=== PATIENT | male | born 1955 | race Caucasian/White ===

== ENCOUNTER 2017-07-13 16:20 | Inpatient (IN) | payer OTHER ==
--- NOTE | 2017-07-13 16:32 | PDOC ---
History of Present Illness - General Chief Complaint: Pain, Acute Stated Complaint: RIGHT LOWER ABD PAIN Time Seen by Provider: 07/13/17 16:31 - History of Present Illness Initial Comments: 07/13/17 16:41 Chief complaint: Abdominal pain History of present illness: Right lower quadrant pain since this morning. No nausea or vomiting, had a small breakfast, bowel of soup for lunch, but admits anorexia. Normal bowel movement this morning. Review of systems: No fever/chills, recent URI symptoms, sore throat, cough, chest pain, shortness of breath, vomiting, diarrhea, nausea, hematemesis, melena , bloody stool, visual or focal neurologic symptoms, unsteadiness of gait. In addition, no dysuria frequency urgency hesitancy or hematuria. Remainder systems reviewed and found to be negative Past medical history: High blood pressure on medication, "kidney problem" many years ago, treated with medication, no surgery, no recurrence. The exact nature of the problem is uncertain. No known coronary artery disease, diabetes or other metabolic diseases. No surgery. 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 PERRLA, ENT clear Neck supple without bruit mass or nodes Chest clear. No wheezes rales or rhonchi CV S1 and S2 normal without murmur rub or gallop pulses full and symmetric no JVD or edema no bruits Abdomen mildly distended. Bowel sounds present and normal in character. Tenderness guarding and rebound are present in the right lower quadrant. : No hernias. Testes without mass or tenderness. Neurological intact Extremities no CCE Skin clear, no rash, adequate turgor and wet mucous membranes Impression: Right lower quadrant pain since this morning with peritoneal signs, possible appendicitis, acute diverticulitis, or partial obstruction. Plan: Labs and CT. Further evaluation and surgical consultation if indicated. 07/13/17 18:06 Past History - Past Medical History Allergies/Adverse Reactions: Allergies Allergy/AdvReac Type Severity Reaction Status Date / Time No Known Allergies Allergy Verified 07/13/17 16:21 Home Medications: Ambulatory Orders Atenolol [Tenormin -] 50 mg PO DAILY 07/13/17 Budesonide/Formeterol Fumarate [SYMBICORT 80/4.5mcg -] 1 inh PO BID 07/13/17 Irbesartan 0 mg PO DAILY 07/13/17 COPD: No (?) HTN: Yes - Suicide/Smoking/Psychosocial Hx Smoking History: Current every day smoker Number of Cigarettes Smoked Daily: 10 Information on smoking cessation initiated: Yes 'Breaking Loose' booklet given: 07/13/17 Hx Alcohol Use: No Drug/Substance Use Hx: No Substance Use Type: None *Physical Exam - Vital Signs Last Vital Signs Temp Pulse Resp BP Pulse Ox 100.8 F H 94 H 18 146/76 97 07/13/17 16:21 07/13/17 16:21 07/13/17 16:21 07/13/17 16:21 07/13/17 16:21 ED Treatment Course - LABORATORY CBC & Chemistry Diagram: 07/15/17 07:20 07/15/17 07:20 Medical Decision Making - Medical Decision Making 07/13/17 18:06 WBC 19.7. Remainder of labs without significant abnormalities including BUN 23 and creatinine 1.0. Results of CT pending. Patient continues to require analgesics. However, hemodynamically stable. Signed out to Dr. Diaz at 7 PM pending results of CT scan and further surgical evaluation. *DC/Admit/Observation/Transfer Diagnosis at time of Disposition: Diverticulitis of colon with perforation - Discharge Dispostion Condition at time of disposition: Stable - Referrals - Patient Instructions - Post Discharge Activity
[2017-07-13] MEDS ORDERED: SODIUM CHLORIDE 1,000 ML IV STA (16:40)
[2017-07-13] MEDS ORDERED: morphine CARPU-JECT 4 MG/1 ML DISP.SYRIN IVPUSH ONE ×2 (17:06→18:29)
[2017-07-13] MEDS ORDERED: ONDANSETRON 4 MG/2 ML VIAL IVPB ONE (17:06)
[2017-07-13] MEDS ORDERED: ONDANSETRON 4 MG/2 ML VIAL ONE (17:09)
[2017-07-13] MEDS ORDERED: morphine SULFATE 4 MG/ML VIAL ONE ×2 (17:09→18:30)
[2017-07-13 17:10] LABS: INR 1.24 (0.82-1.09); PROTHROMBIN TIME (PATIENT) 13.8 SEC (10.2-13.0)
[2017-07-13 17:11] LABS: HEMOGLOBIN 15.9 GM/dl (11.7-16.9); MCH 33.9 pg (25.7-33.7); MCHC 35.4 g/dl (32.0-35.9); MEAN CELL VOLUME 95.8 fl (80-96); MEAN PLT VOLUME 8.8 fl (7.5-11.1); PLATELET COUNT 214 K/MM3 (134-434); RDW 12.8 % (11.9-15.9); WHITE BLOOD COUNT 19.7 K/mm3 (4.0-10.8)
[2017-07-13 17:11] LABS: URINE APPEARANCE Clear; URINE BILIRUBIN Negative (NEGATIVE); URINE GLUCOSE (UA) Negative (NEGATIVE); URINE KETONE Trace (NEGATIVE); URINE LEUK ESTERASE Negative (NEGATIVE); URINE NITRITE Negative (NEGATIVE)
[2017-07-13 17:12] LABS: URINE BLOOD Trace-intact (NEGATIVE); URINE COLOR YELLOW; URINE PROTEIN 2+ (NEGATIVE)
[2017-07-13 17:15] LABS: ALBUMIN 4.2 g/dl (3.5-5.0); ALK PHOS 61 U/L (32-92); ANION GAP 11 (8-16); BLOOD UREA NITROGEN 23 mg/dl (7-18); CALCIUM 9.4 mg/dl (8.4-10.2); CHLORIDE 96 mmol/L (98-107); CO2 25 mmol/L (22-28); GLUCOSE,RANDOM 115 mg/dl (74-106); POTASSIUM 3.6 mmol/L (3.5-5.1); SGOT/AST 29 U/L (10-42); SGPT/ALT 23 U/L (10-40); SODIUM 132 mmol/L (136-145); TOT PROT 7.3 g/dl (6.4-8.3)
[2017-07-13] MEDS ORDERED: FUROSEMIDE 40 MG/4 ML INJECTABLE VIAL IVPUSH ONE (17:17)
[2017-07-13] MEDS ORDERED: CEFAZOLIN 1 GM in DEXTROSE 5%-WATER - 50 ML IVPB ONE (17:18)
[2017-07-13 17:39] LABS: URINE BACTERIA FEW /hpf (NEGATIVE); URINE WBC 0-2 (0-2)
[2017-07-13 17:44] LABS: PLATELET ESTIMATE ADEQUATE
--- NOTE | 2017-07-13 19:16 | PDOC ---
*Physical Exam - Vital Signs Last Vital Signs Temp Pulse Resp BP Pulse Ox 100.8 F H 94 H 18 146/76 97 07/13/17 16:21 07/13/17 16:21 07/13/17 16:21 07/13/17 16:21 07/13/17 16:21 ED Treatment Course - LABORATORY CBC & Chemistry Diagram: 07/13/17 16:42 07/13/17 16:42 - ADDITIONAL ORDERS Additional order review: Laboratory Results 07/13/17 07/13/17 07/13/17 16:42 16:42 16:32 PT with INR 13.8 H INR 1.24 H Sodium 132 L Potassium 3.6 Chloride 96 L Carbon Dioxide 25 Anion Gap 11 BUN 23 H Creatinine 1.0 Creat Clearance w eGFR > 60 Random Glucose 115 H Calcium 9.4 Total Bilirubin 1.0 AST 29 ALT 23 Alkaline Phosphatase 61 Total Protein 7.3 Albumin 4.2 Urine Color Yellow Urine Appearance Clear Urine pH 6.0 Ur Specific [place] 1.020 Urine Protein 2+ H Urine Glucose (UA) Negative Urine Ketones Trace Urine Blood Trace-intact H Urine Nitrite Negative Urine Bilirubin Negative Urine Urobilinogen 1.0 Ur Leukocyte Esterase Negative Urine RBC 5-10 Urine WBC 0-2 Urine Bacteria Few 07/13/17 16:42 RBC 4.70 MCV 95.8 MCHC 35.4 RDW 12.8 MPV 8.8 Neutrophils % No Result Required. Lymphocytes % No Result Required. - Medications Given in the ED: ED Medications Discontinued Medications Generic Name Dose Route Start Last Admin Trade Name Abhilashq PRN Reason Stop Dose Admin Furosemide 40 mg 07/13/17 17:17 07/13/17 17:36 Lasix Injection - IVPUSH 07/13/17 17:18 Not Given ONCE ONE Sodium Chloride 1,000 mls @ 1,000 mls/hr 07/13/17 16:40 07/13/17 16:49 Normal Saline - IV 07/13/17 17:39 1,000 mls/hr ASDIR STA Administration Cefazolin Sodium 1 gm/ 50 mls @ 100 mls/hr 07/13/17 17:18 07/13/17 17:36 Dextrose IVPB 07/13/17 17:47 Not Given ONCE ONE Morphine Sulfate 4 mg 07/13/17 17:06 07/13/17 17:16 Morphine Injection - IVPUSH 07/13/17 17:07 4 mg ONCE ONE Administration Morphine Sulfate 4 mg 07/13/17 18:29 07/13/17 18:35 Morphine Injection - IVPUSH 07/13/17 18:30 4 mg ONCE ONE Administration Ondansetron HCl 4 mg 07/13/17 17:06 07/13/17 17:16 Zofran Injection IVPB 07/13/17 17:07 4 mg ONCE ONE Administration Progress Note - Progress Note Progress Note: Care of this patient was transferred to sc from Dr. Purdy at 1900 hrs.. This is a 61-year-old male with right lower quadrant pain sent in by his PMD to rule out appendicitis. Patient's workup thus far includes is markedly elevated white count with left shift, a slight increase in his INR. An elevated BUN of 23 but a normal creatinine. And a mildly elevated glucose of 115. Patient has a CT of the abdomen and pelvis pending. Patient has received fluids, pain medication and a gram of Ancef. 20:00 CAT scan shows acute diverticulitis with some free air but no abscess. Reassessment of patient patient's still uncomfortable. Patient given a gram of Dilaudid and Flagyl. Patient will be admitted to an inpatient bed for further management of his diverticulitis. Patient will be admitted to the hospitalist service. Discussed case with Dr. Schroeder surgery who is will consult. . Signout given to the admitting hospitalist, who accepts the patient. Discussed plan with the patient family at bedside, Patient and family aware of the plan and agree. Patient is clinically unchanged and stable. *DC/Admit/Observation/Transfer Diagnosis at time of Disposition: Diverticulitis of colon with perforation Qualifiers: Diverticulitis bleeding: without bleeding Qualified Code(s): K57.20 - Diverticulitis of large intestine with perforation and abscess without bleeding - Discharge Dispostion Condition at time of disposition: Stable Decision to Admit order: Yes - Referrals - Patient Instructions - Post Discharge Activity
[2017-07-13] MEDS ORDERED: HYDROmorphone HCL CARPU-JECT 1 MG/1 ML DISP.SYRIN ONE (19:51)
[2017-07-13] MEDS ORDERED: HYDROmorphone HCL CARPU-JECT 1 MG/1 ML DISP.SYRIN IVPUSH ONE (19:53)
--- NOTE | 2017-07-13 21:31 | HP ---
CHIEF COMPLAINT: Abdominal Pain PCP: Dr. Petersen HISTORY OF PRESENT ILLNESS: This is a 61 y/o man past medical history of HTN. Who presents to the ED from his PMDs with lower abdominal pain, cramping and multiple BMs. Patient reports having abdominal cramping increased during the day, worse after eating. Patient reports having several BMs formed to soft throughout the day. Patient reports having subjective fever without chills. Patient denies SOB, CP, vomiting, constipation, melena, hematochezia, dysuria. ER course was notable for: (1) CTAP- Pneumoperitoneum. Acute Diverticulitis (2) WBC 15.9, 24 bands (3) T Max 100.8 Recent Travel: None PAST MEDICAL HISTORY: HTN PAST SURGICAL HISTORY: Colonoscopy- polyp removed Social History: Smokin/2 PPD Alcohol: None Drugs: None Lives with family- employed [employer] Family History: Mother: Colon Ca Father: Lung Ca Aunt: DM Allergies No Known Allergies Allergy (Verified 07/13/17 16:21) HOME MEDICATIONS: Home Medications Medication Instructions Recorded Atenolol [Tenormin -] 50 mg PO DAILY 07/13/17 Budesonide/Formeterol Fumarate 1 inh PO BID 07/13/17 [SYMBICORT 80/4.5mcg -] Irbesartan 0 mg PO DAILY 07/13/17 REVIEW OF SYSTEMS CONSTITUTIONAL: Absent: fever, chills, diaphoresis, generalized weakness, malaise, loss of appetite, weight change HEENT: Absent: rhinorrhea, nasal congestion, throat pain, throat swelling, difficulty swallowing, mouth swelling, ear pain, eye pain, visual changes CARDIOVASCULAR: Absent: chest pain, syncope, palpitations, irregular heart rate, lightheadedness , peripheral edema RESPIRATORY: Absent: cough, shortness of breath, dyspnea with exertion, orthopnea, wheezing, stridor, hemoptysis GASTROINTESTINAL:abdominal pain, abdominal distension, nausea Absent: vomiting, diarrhea, constipation, melena, hematochezia GENITOURINARY: Absent: dysuria, frequency, urgency, hesitancy, hematuria, flank pain, genital pain MUSCULOSKELETAL: Absent: myalgia, arthralgia, joint swelling, back pain, neck pain SKIN: Absent: rash, itching, pallor HEMATOLOGIC/IMMUNOLOGIC: Absent: easy bleeding, easy bruising, lymphadenopathy, frequent infections ENDOCRINE: Absent: unexplained weight gain, unexplained weight loss, heat intolerance, cold intolerance NEUROLOGIC: Absent: headache, focal weakness or paresthesias, dizziness, unsteady gait, seizure, mental status changes, bladder or bowel incontinence PSYCHIATRIC: Absent: anxiety, depression, suicidal or homicidal ideation, hallucinations. PHYSICAL EXAMINATION Vital Signs - 24 hr 07/13/17 16:21 Temperature 100.8 F H Pulse Rate 94 H Respiratory 18 Rate Blood Pressure 146/76 O2 Sat by Pulse 97 Oximetry (%) GENERAL: Awake, alert, and fully oriented, in no acute distress. HEAD: Normal with no signs of trauma. EYES: Pupils equal, round and reactive to light, extraocular movements intact, sclera anicteric, conjunctiva clear. No lid lag. EARS, NOSE, THROAT: Ears normal, nares patent, oropharynx clear without exudates. Dry mucous membranes. NECK: Normal range of motion, supple without lymphadenopathy, JVD, or masses. LUNGS: Breath sounds equal, clear to auscultation bilaterally. No wheezes, and no crackles. No accessory muscle use. HEART: Regular rate and rhythm, normal S1 and S2 without murmur, rub or gallop. ABDOMEN: Firm, LLQ tenderness, distended, hypoactive bowel sounds, no guarding, no rebound, no masses. No hepatomegaly or splenomegaly. MUSCULOSKELETAL: Normal range of motion at all joints. No bony deformities or tenderness. No CVA tenderness. UPPER EXTREMITIES: 2+ pulses, warm, well-perfused. No cyanosis. No clubbing. No peripheral edema. LOWER EXTREMITIES: 2+ pulses, warm, well-perfused. No calf tenderness. No peripheral edema. NEUROLOGICAL: Cranial nerves II-XII intact. Normal speech. Normal gait. PSYCHIATRIC: Cooperative. Good eye contact. Appropriate mood and affect. SKIN: Warm, dry, normal turgor, no rashes or lesions noted, normal capillary refill. Laboratory Results - last 24 hr 07/13/17 07/13/17 07/13/17 16:32 16:42 16:42 WBC 19.7 H RBC 4.70 Hgb 15.9 Hct 45.0 MCV 95.8 MCH 33.9 H MCHC 35.4 RDW 12.8 Plt Count 214 MPV 8.8 Neutrophils % No Result Required. Neutrophils % (Manual) 64.0 Band Neutrophils % 24.0 H Lymphocytes % No Result Required. Lymphocytes % (Manual) 10.0 Monocytes % (Manual) 2 L Platelet Estimate Adequate PT with INR 13.8 H INR 1.24 H Sodium Potassium Chloride Carbon Dioxide Anion Gap BUN Creatinine Creat Clearance w eGFR Random Glucose Calcium Total Bilirubin AST ALT Alkaline Phosphatase Total Protein Albumin Urine Color Yellow Urine Appearance Clear Urine pH 6.0 Ur Specific [place] 1.020 Urine Protein 2+ H Urine Glucose (UA) Negative Urine Ketones Trace Urine Blood Trace-intact H Urine Nitrite Negative Urine Bilirubin Negative Urine Urobilinogen 1.0 Ur Leukocyte Esterase Negative Urine RBC 5-10 Urine WBC 0-2 Urine Bacteria Few 07/13/17 16:42 WBC RBC Hgb Hct MCV MCH MCHC RDW Plt Count MPV Neutrophils % Neutrophils % (Manual) Band Neutrophils % Lymphocytes % Lymphocytes % (Manual) Monocytes % (Manual) Platelet Estimate PT with INR INR Sodium 132 L Potassium 3.6 Chloride 96 L Carbon Dioxide 25 Anion Gap 11 BUN 23 H Creatinine 1.0 Creat Clearance w eGFR > 60 Random Glucose 115 H Calcium 9.4 Total Bilirubin 1.0 AST 29 ALT 23 Alkaline Phosphatase 61 Total Protein 7.3 Albumin 4.2 Urine Color Urine Appearance Urine pH Ur Specific [place] Urine Protein Urine Glucose (UA) Urine Ketones Urine Blood Urine Nitrite Urine Bilirubin Urine Urobilinogen Ur Leukocyte Esterase Urine RBC Urine WBC Urine Bacteria ASSESSMENT/PLAN: This is a 61 y/o man PMHx HTN. Admitted for Acute Diverticulitis with Perforation, Abdominal Pain, Leukocytosis. Plan: FEN - D51/2NS@83ml/hr - Replete lytes prn - NPO Code Status: Full Code Dispo: Requires Inpatient Care Problem List - Problem (1) Diverticulitis of colon with perforation Assessment/Plan: - CTAP- Pneumoperitoneum, Acute Diverticulitis without Abscess - WBC 19.7 - Bands 24 - T Max 100.8 - Flagyl given in ED, will continue - Will start Ancef tonight - Appreciate Surgical Consult - NPO - IVF - Monitor CBC, BMP - Monitor vitals - Morphine Sulfate prn Code(s): K57.20 - DVTRCLI OF LG INT W PERFORATION AND ABSCESS W/O BLEEDING Qualifiers: Diverticulitis bleeding: without bleeding Qualified Code(s): K57.20 - Diverticulitis of large intestine with perforation and abscess without bleeding (2) Leukocytosis Assessment/Plan: - Likely secondary to Diverticulitis - Blood Cultures-tonight - Continue ABX - Repeat CBC in am - Monitor vitals Code(s): D72.829 - ELEVATED WHITE BLOOD CELL COUNT, UNSPECIFIED (3) HTN (hypertension) Assessment/Plan: - Stable - Monitor BP - Continue home meds - Monitor renal function Code(s): I10 - ESSENTIAL (PRIMARY) HYPERTENSION (4) DVT prophylaxis Assessment/Plan: - OOB - SCDs - Heparin SQ Code(s): QJW7768 - Visit type - Emergency Visit Emergency Visit: Yes ED Registration Date: 07/13/17 Care time: The patient presented to the Emergency Department on the above date and was hospitalized for further evaluation of their emergent condition. - New Patient This patient is new to me today: Yes Date on this admission: 07/13/17 - Critical Care Critical Care patient: No Hospitalist Screening - Colonoscopy Questionnaire Colonoscopy Questionnaire: Colonoscopy Questionnaire - Patient: 50 - 75 years old and never had a screening colonoscopy: No History of colon or rectal polyps, or CA: Yes History of IBD, Crohn's disease or UC: No History of abdominal radiation therapy as a child: No - Relative: 1 with colon or rectal CA, or polyps at age 60 or younger: Yes Colon or rectal CA diagnosed at age 45 or younger: No Multiple relatives with colon or rectal CA: No - Outcome: Screening Result: Positive Screen
[2017-07-13] MEDS ORDERED: DEXTROSE 5%-0.45% SALINE 1,000 ML IV SCH (21:45)
[2017-07-13] MEDS ORDERED: CEFAZOLIN 1 GM/D5W 1 GM/50 ML BAG IVPB ONE (21:56)
[2017-07-13] MEDS ORDERED: ceFAZolin SODIUM 1 GM VIAL ONE (21:59)
[2017-07-13] MEDS: BUDESONIDE/FORMETEROL FUMARATE 80/4.5 mcg INHALER IH SCH (22:10)
[2017-07-14] MEDS: morphine SULFATE 4 MG/ML VIAL IVPUSH PRN ×3 (02:06→19:19)
[2017-07-14 07:29] LABS: BASO % 0.8 % (0-2.0); EOS % 0.3 % (0-4.5); HEMATOCRIT 41.8 % (35.4-49); HEMOGLOBIN 14.5 GM/dl (11.7-16.9); LYMPH % 8.9 % (8-40); MCH 33.3 pg (25.7-33.7); MCHC 34.6 g/dl (32.0-35.9); MEAN CELL VOLUME 96.4 fl (80-96); MEAN PLT VOLUME 8.3 fl (7.5-11.1); MONO % 5.5 % (3.8-10.2); NEUT % 84.5 % (42.8-82.8); PLATELET COUNT 195 K/MM3 (134-434); RBC 4.34 M/mm3 (4.00-5.60); WHITE BLOOD COUNT 18.6 K/mm3 (4.0-10.8)
[2017-07-14 07:43] LABS: ANION GAP 6 (8-16); BLOOD UREA NITROGEN 15 mg/dl (7-18); CALCIUM 8.4 mg/dl (8.4-10.2); CHLORIDE 94 mmol/L (98-107); CO2 31 mmol/L (22-28); CREATININE 0.8 mg/dl (0.6-1.3); GLUCOSE,RANDOM 110 mg/dl (74-106); POTASSIUM 3.9 mmol/L (3.5-5.1); SODIUM 131 mmol/L (136-145)
--- NOTE | 2017-07-14 07:51 | PN ---
Physical Exam: SUBJECTIVE: Patient seen and examined, ambulating at bedside, reports generalized abdominal pain, denies any tactile fever. OBJECTIVE: Patient is a 61 y/o male with a past medical history of hypertension , patient was admitted from the emergency department for diverticulitis with pneumoperiteneum. Vital Signs Period Temp Pulse Resp BP Sys/Skinner Pulse Ox Last 24 Hr 98.4 F-100.8 F 73-94 18-18 112-146/58-76 94-97 GENERAL: The patient is awake, alert, and fully oriented, in no acute distress. HEAD: Normal with no signs of trauma. EYES: PERRL, extraocular movements intact, sclera anicteric, conjunctiva clear. No ptosis. ENT: Ears normal, nares patent, oropharynx clear without exudates, moist mucous membranes. NECK: Trachea midline, full range of motion, supple. LUNGS: Breath sounds equal, clear to auscultation bilaterally, no wheezes, no crackles, no accessory muscle use. HEART: Regular rate and rhythm, S1, S2 without murmur, rub or gallop. ABDOMEN: Soft,umbilical hernia, generalized abdominal tenderness, hypoactive bowel sounds, no guarding, no rebound, no hepatosplenomegaly, no masses. EXTREMITIES: 2+ pulses, warm, well-perfused, no edema. NEUROLOGICAL: Cranial nerves II through XII grossly intact. Normal speech, gait not observed. PSYCH: Normal mood, normal affect. SKIN: Warm, dry, normal turgor, no rashes or lesions noted Laboratory Results - last 24 hr CBC WBC 18.6 K/mm3 (4.0-10.8) H 07/14/17 07:11 RBC 4.34 M/mm3 (4.00-5.60) 07/14/17 07:11 Hgb 14.5 GM/dl (11.7-16.9) 07/14/17 07:11 Hct 41.8 % (35.4-49) 07/14/17 07:11 MCV 96.4 fl (80-96) H 07/14/17 07:11 MCH 33.3 pg (25.7-33.7) 07/14/17 07:11 MCHC 34.6 g/dl (32.0-35.9) 07/14/17 07:11 RDW 13.0 % (11.9-15.9) 07/14/17 07:11 Plt Count 195 K/MM3 (134-434) 07/14/17 07:11 MPV 8.3 fl (7.5-11.1) 07/14/17 07:11 Neutrophils % 84.5 % (42.8-82.8) H 07/14/17 07:11 Neutrophils % (Manual) 64.0 % (42.8-82.8) 07/13/17 16:42 Band Neutrophils % 24.0 % (0-10) H 07/13/17 16:42 Lymphocytes % 8.9 % (8-40) 07/14/17 07:11 Lymphocytes % (Manual) 10.0 % (8-40) 07/13/17 16:42 Monocytes % 5.5 % (3.8-10.2) 07/14/17 07:11 Monocytes % (Manual) 2 % (3.8-10.2) L 07/13/17 16:42 Eosinophils % 0.3 % (0-4.5) 07/14/17 07:11 Basophils % 0.8 % (0-2.0) 07/14/17 07:11 Platelet Estimate Adequate 07/13/17 16:42 CMP Sodium 131 mmol/L (136-145) L 07/14/17 07:11 Potassium 3.9 mmol/L (3.5-5.1) 07/14/17 07:11 Chloride 94 mmol/L (98-107) L 07/14/17 07:11 Carbon Dioxide 31 mmol/L (22-28) H D 07/14/17 07:11 Anion Gap 6 (8-16) L 07/14/17 07:11 BUN 15 mg/dl (7-18) D 07/14/17 07:11 Creatinine 0.8 mg/dl (0.6-1.3) 07/14/17 07:11 Creat Clearance w eGFR > 60 (>60) 07/13/17 16:42 Random Glucose 110 mg/dl (74-106) H 07/14/17 07:11 Lactic Acid 0.8 mmol/L (0.0-2.0) 07/13/17 22:45 Calcium 8.4 mg/dl (8.4-10.2) 07/14/17 07:11 Total Bilirubin 1.0 mg/dl (0.2-1.0) 07/13/17 16:42 AST 29 U/L (10-42) 07/13/17 16:42 ALT 23 U/L (10-40) 07/13/17 16:42 Alkaline Phosphatase 61 U/L (32-92) 07/13/17 16:42 Total Protein 7.3 g/dl (6.4-8.3) 07/13/17 16:42 Albumin 4.2 g/dl (3.5-5.0) 07/13/17 16:42 Active Medications Generic Name Dose Route Start Last Admin Trade Name Freq PRN Reason Stop Dose Admin Atenolol 50 mg 07/14/17 10:00 Tenormin - PO DAILY RAE Budesonide/Formoterol Fumarate 1 puff 07/13/17 22:15 07/13/17 22:10 Symbicort 80/4.5mcg - IH 1 puff BID RAE Administration Heparin Sodium (Porcine) 5,000 unit 07/13/17 22:00 Heparin - SQ BID RAE Dextrose/Sodium Chloride 1,000 mls @ 83 mls/hr 07/13/17 21:45 07/13/17 22:11 D5-1/2ns - IV 83 mls/hr ASDIR RAE Administration Cefazolin Sodium 1 gm in 50 mls @ 100 mls/hr 07/14/17 10:00 Ancef 1 Gm Premixed Ivpb - IVPB Q8H-IV RAE Metronidazole 500 mg in 100 mls @ 100 mls/hr 07/14/17 02:00 07/14/17 01:00 Flagyl 500mg Premixed Ivpb - IVPB 100 mls/hr Q8H-IV RAE Administration Losartan Potassium 25 mg 07/14/17 10:00 Cozaar - PO DAILY RAE Morphine Sulfate 4 mg 07/13/17 22:00 07/14/17 02:06 Morphine Sulfate IVPUSH 4 mg Q6H PRN Administration PAIN LEVEL 7 - 10 EKG: left bundle branch block, nsr IMAGING ct of abd/pelvis w/contrast: diverticulitis, pneumopertineum w/o abscess chest xray: no infilirates no effusion noted ASSESSMENT/PLAN: 1) GI diverticulitis with perforation - upgrade abx to zosyn and flagyl, leukocytosis trending downward, low grade temp noted, pending cultures - serial abdominal exam - npo-->ivf - last colonscopy was 201 - appreciate surgical input, Dr Schroeder 2) cardiovascular hypertension - continue cozaar and atenolol - b/p at goal 3) pulm copd tobacco smoker - no acute excerbation at this time, continue symbicort and albuterol prn f/e/n - ivf - npo ppx - heparin - pepcid dispo: pt requires inpatient admission Visit type - Emergency Visit Emergency Visit: Yes ED Registration Date: 07/13/17 Care time: The patient presented to the Emergency Department on the above date and was hospitalized for further evaluation of their emergent condition. - New Patient This patient is new to me today: No - Critical Care Critical Care patient: No - Discharge Referral Referred to [facility] Med P.C.: No
[2017-07-14] MEDS ORDERED: PIPERACILLIN/TAZOB 4.5 GM 4.5 GM in DEXTROSE 5%-WATER 100 ML IVPB ONE (08:15)
[2017-07-14] MEDS ORDERED: CEFAZOLIN 1 GM/D5W 1 GM/50 ML BAG IVPB SCH (10:00)
[2017-07-14] MEDS ORDERED: IRBESARTAN 75 MG PO SCH (10:00)
[2017-07-14] MEDS: HEPARIN NA (PORCINE) 5,000 UNITS/ML 1ML VIAL SQ SCH ×3 (10:00→21:49)
--- NOTE | 2017-07-14 10:24 | PN ---
Progress Note (short form) - Note Progress Note: ID Consult dictated Acute complicated diverticulitis with perforation R/O sepsis secondary to GI source Await c/s Empiric Zosyn
[2017-07-14] MEDS: LOSARTAN POTASSIUM 25 MG TABLET PO SCH (10:46)
[2017-07-14] MEDS: ATENOLOL 50 MG TABLET (FP) PO SCH (10:46)
[2017-07-14] MEDS: PIPERACILLIN/TAZOB 3.375 GM 3.375 GM in DEXTROSE 5%-WATER - 50 ML IVPB SCH ×2 (10:47→17:30)
[2017-07-14] MEDS: BUDESONIDE/FORMETEROL FUMARATE 80/4.5 mcg INHALER IH SCH ×2 (10:48→21:48)
--- NOTE | 2017-07-14 11:01 | CONS ---
DATE OF CONSULTATION: DATE OF DICTATION: 05/15/2015 HISTORY OF PRESENT ILLNESS: The patient is a 61-year-old male with a history of hypertension evaluated for complicated diverticulitis. He presented with complaints of right lower quadrant abdominal pain on the day of admission. He had developed acute onset of right lower quadrant pain not associated with nausea, vomiting after a small meal for breakfast. He presented to the emergency room where he was found to have right-sided abdominal tenderness. A CAT scan of the abdomen and pelvis was performed and showed acute diverticulitis of the sigmoid colon with inflammatory changes and multiple diverticula with evidence of free air. Findings were consistent with acute diverticulitis without abscess formation. He was empirically treated with cefazolin. At the present time the patient is awake and alert. He has no complaints of abdominal pain. No recurrent nausea, vomiting. He reports having a normal bowel movement on the day prior to admission. His course has been complicated by a low-grade temperature. PAST MEDICAL HISTORY: Positive for hypertension. ALLERGIES: No known drug allergies. MEDICATIONS: Include Symbicort, Cozaar, Tenormin. SOCIAL HISTORY: He resides at home. He is a smoker. No history of alcohol abuse or illicit drug use. SYSTEMS REVIEW: Neurologic: No loss of consciousness, seizure activity, focal weakness. Cardiac: Negative chest pain or palpitations. Respiratory: Negative cough or sputum production. Gastrointestinal: As per HPI. Genitourinary: Negative for urinary tract infection. LABORATORY DATA: White count 18.6, hematocrit 41.8, platelet count 195. BUN 15, creatinine 0.8. Urinalysis: White cells 0 to 2. Cultures are pending. PHYSICAL EXAMINATION:General: He is awake and alert. He is in no acute distress. Vital Signs: Temperature 98.6, blood pressure 121/66, pulse 84, regular, respirations 18 per minute. HEENT: Sclerae are anicteric. Cardiac: Heart sounds S1, S2. Lungs: Clear. Abdomen: Soft. There is some left lower quadrant tenderness to palpation. No mass, rebound or rigidity. Extremities: Negative for edema. IMPRESSION: 1. Acute complicated sigmoid diverticulitis. 2. Leukocytosis. 3. Possible sepsis secondary to gastrointestinal source. RECOMMENDATIONS: Await culture results. GI and surgical evaluation. Empiric antibiotic coverage of bowel sowmya with Zosyn and Flagyl. Analgesics as needed. Will follow. Thank you for the kind referral. KEMAR BROWN M.D. [id number]
[2017-07-14] MEDS ORDERED: ALBUTEROL SO4 0.083% IH SOL 2.5 MG/3 ML VIAL.NEB. NEB PRN (11:30)
[2017-07-14] MEDS ORDERED: DEXTROSE 5%-NORMAL SALINE 1,000 ML IV SCH (11:30)
--- NOTE | 2017-07-14 11:59 | EKG ---
Test Reason : Blood Pressure : / mmHG Vent. Rate : 077 BPM Atrial Rate : 077 BPM P-R Int : 158 ms QRS Dur : 132 ms QT Int : 398 ms P-R-T Axes : 000 -04 126 degrees QTc Int : 450 ms NORMAL SINUS RHYTHM LEFT BUNDLE BRANCH BLOCK ABNORMAL ECG NO PREVIOUS ECGS AVAILABLE Confirmed by EMERSON LOCKE, RAHUL ([id number]) on 07/14/2017 11:59:23 AM Referred By: MD LOZANO Confirmed By:RAHUL NORMAN MD
[2017-07-14] MEDS: NICOTINE 14 MG/24 HOURS TOPICAL PATCH TD SCH (13:13)
[2017-07-14] MEDS: FAMOTIDINE 20 MG TABLET PO SCH ×2 (13:14→21:48)
[2017-07-14] MEDS ORDERED: ACETAMINOPHEN 1000 MG/100 ML VIAL (NON FORMULARY) IVPB ONE (13:33)
[2017-07-14] MEDS: LACTOBACILLUS ACIDOPHILUS 1 TABLET PO SCH (14:35)
--- NOTE | 2017-07-14 14:53 | PN ---
Progress Note (short form) - Note Progress Note: surgery pt seen and examined. full consult dictated. 61m with last colonoscopy 7 years ago, presents with lower abd pain, leukocytosis, and ct showing perforated viscous likley sigmoid diverticulitis. pt admitted with iv abx. abx changed to zosyn. fever 100.3. wbc 18. abd- soft, moderate distension, voluntary guarding, lower abd tendernss > upper. some rebound Plan- clinically perforated sigmoid diverticulitis > perforated malignancy. Pt is non toxic despite ct findings. Suspect sealed perforation. Pt offered exploratory surgery with colostomy and declines. He wants medical management and assumes risk of worsening sepsis and delay in diagnosis of malignancy. Spoke with in detail as well who agrees with his plan. will keep npo. cont zosyn. interval colonoscopy and sigmoid colectomy if medical management successful. Exploratory surgery if pt shows worsening sepsis.
--- NOTE | 2017-07-14 17:03 | CONS ---
DATE OF CONSULTATION: 07/14/2017 REASON FOR CONSULTATION: Perforated viscus, suspect diverticulitis. REQUESTING PHYSICIAN: This is an emergency room consultation requested by the emergency room physician. The patient was subsequently admitted to the [facility] floor, is being seen and examined there. BRIEF HISTORY: This is a 61-year-old male who last had a colonoscopy 7 years ago, presents with abdominal pain in his lower abdomen. He had a CAT scan of his abdomen and pelvis which showed droplets of free air as well as air next to a sigmoid colon with significant diverticula. The sales representative advertising opined this was likely perforated sigmoid diverticulitis. His white blood cell count was noted to be 19,000. He was started on intravenous Ancef and Flagyl and admitted to the hospital for management and surgical evaluation. He denies diarrhea. He had a T-max of 100.8 overnight. PAST MEDICAL HISTORY: Significant for hypertension and kidney stones. SOCIAL HISTORY: Positive for tobacco. Negative for alcohol. He has been encouraged to quit. FAMILY HISTORY: Negative for malignancy in the immediate family. HOME MEDICATIONS: Include atenolol, Symbicort, and irbesartan. REVIEW OF SYSTEMS: General: Denies fatigue or malaise. Cardiac: Denies chest pain or palpitations. Respiratory: Denies shortness of breath or wheeze. Gastrointestinal: As per HPI. Genitourinary: Denies dysuria. Musculoskeletal: Denies joint pain or joint swelling. Psychiatric: Denies anxiety, depression, or hearing voices. PHYSICAL EXAMINATION: General: This is a well-developed well-nourished 61-year-old male in no distress. Vital Signs: He is afebrile, his vital signs are stable. HEENT: His head is normocephalic. His sclerae are anicteric. Neck: Supple. Chest: Clear. Abdomen: Soft. It is mildly distended. He has significant tenderness in the lower abdomen with minimal tenderness in the upper abdomen. He has voluntary guarding. He has no obvious surgical scars. He has perhaps a small ventral hernia. Extremities: Have edema. REVIEW OF LABORATORY DATA: His white blood cell count is 18, down from 19. His liver function tests are unremarkable. IMAGING: As stated in HPI. ASSESSMENT/PLAN: This is a 61-year-old male with abdominal pain, leukocytosis, CAT scan evidence of a perforated viscus, likely perforated diverticulitis. Clinically this is likely perforated sigmoid diverticulitis. The patient, therefore, has been offered exploratory surgery with likely sigmoid colectomy and colostomy. He declines this. He states he feels okay and wishes to attempt the medical management. He is willing to assume the risks of worsening sepsis. He also understands that this may also be a perforated malignancy and understands that by not having surgery he will delay the diagnosis of that for at least 6 weeks until he can safely have a colonoscopy. I discussed this with the patient as well as in detail, and they both do not wish to have surgery. At this point, continue n.p.o. We will change antibiotics to Zosyn which has better coverage of gram-negative as well as E. coli and Enterococcus. I suspect the patient has a sealed perforation, but would still keep n.p.o. for several days and likely need 5 days minimum of IV antibiotics. If he is not feeling better by Tuesday, would repeat CAT scan to look for a collection. If he develops high fever, hypotension, or tachycardia, or worsening pain, then he will obviously need to go for exploratory surgery. If he is successfully managed medically, would recommend interval colonoscopy followed by elective sigmoid colectomy which could likely be done laparoscopically without a colostomy. DO SUMEET TOLBERT/[id number]
[2017-07-14] MEDS ORDERED: PT OWN MED DRAWER 7, Y5N ONE (21:06)
[2017-07-15] MEDS: PIPERACILLIN/TAZOB 3.375 GM 3.375 GM in DEXTROSE 5%-WATER - 50 ML IVPB SCH ×3 (02:34→18:17)
[2017-07-15 08:16] LABS: BASO % 0.3 % (0-2.0); EOS % 0.3 % (0-4.5); HEMATOCRIT 41.5 % (35.4-49); HEMOGLOBIN 14.2 GM/dl (11.7-16.9); LYMPH % 7.9 % (8-40); MCHC 34.2 g/dl (32.0-35.9); MEAN CELL VOLUME 96.6 fl (80-96); MEAN PLT VOLUME 8.6 fl (7.5-11.1); MONO % 5.2 % (3.8-10.2); NEUT % 86.3 % (42.8-82.8); PLATELET COUNT 196 K/MM3 (134-434); RDW 12.8 % (11.9-15.9); WHITE BLOOD COUNT 15.6 K/mm3 (4.0-10.8)
--- NOTE | 2017-07-15 08:17 | PN ---
Physical Exam: SUBJECTIVE: Patient seen and examined, reports generalized abdominal pain, denies any tactile fever. OBJECTIVE:Patient is a 61 y/o male with a past medical history of hypertension, patient was admitted from the emergency department for diverticulitis with pneumoperiteneum. Vital Signs Period Temp Pulse Resp BP Sys/Skinner Pulse Ox Last 24 Hr 98.6 F-100.3 F 65-77 18-20 102-107/46-58 94-96 GENERAL: The patient is awake, alert, and fully oriented, in no acute distress. HEAD: Normal with no signs of trauma. EYES: PERRL, extraocular movements intact, sclera anicteric, conjunctiva clear. No ptosis. ENT: Ears normal, nares patent, oropharynx clear without exudates, moist mucous membranes. NECK: Trachea midline, full range of motion, supple. LUNGS: Breath sounds equal, course rhonchi to apexes, diminished to bases, no wheezes, no crackles, no accessory muscle use. HEART: Regular rate and rhythm, S1, S2 without murmur, rub or gallop. ABDOMEN: Soft, generalized abdominal tenderness, umbilical hernia reducible, nontender, nondistended, normoactive bowel sounds, no guarding, no rebound, no hepatosplenomegaly, no masses. EXTREMITIES: 2+ pulses, warm, well-perfused, no edema. NEUROLOGICAL: Cranial nerves II through XII grossly intact. Normal speech, gait not observed. PSYCH: Normal mood, normal affect. SKIN: Warm, dry, normal turgor, no rashes or lesions noted Laboratory Results - last 24 hr CBC WBC 15.6 K/mm3 (4.0-10.8) H 07/15/17 07:20 RBC 4.30 M/mm3 (4.00-5.60) 07/15/17 07:20 Hgb 14.2 GM/dl (11.7-16.9) 07/15/17 07:20 Hct 41.5 % (35.4-49) 07/15/17 07:20 MCV 96.6 fl (80-96) H 07/15/17 07:20 MCH 33.0 pg (25.7-33.7) 07/15/17 07:20 MCHC 34.2 g/dl (32.0-35.9) 07/15/17 07:20 RDW 12.8 % (11.9-15.9) 07/15/17 07:20 Plt Count 196 K/MM3 (134-434) 07/15/17 07:20 MPV 8.6 fl (7.5-11.1) 07/15/17 07:20 Neutrophils % 86.3 % (42.8-82.8) H 07/15/17 07:20 Neutrophils % (Manual) 64.0 % (42.8-82.8) 07/13/17 16:42 Band Neutrophils % 24.0 % (0-10) H 07/13/17 16:42 Lymphocytes % 7.9 % (8-40) L 07/15/17 07:20 Lymphocytes % (Manual) 10.0 % (8-40) 07/13/17 16:42 Monocytes % 5.2 % (3.8-10.2) 07/15/17 07:20 Monocytes % (Manual) 2 % (3.8-10.2) L 07/13/17 16:42 Eosinophils % 0.3 % (0-4.5) 07/15/17 07:20 Basophils % 0.3 % (0-2.0) 07/15/17 07:20 Platelet Estimate Adequate 07/13/17 16:42 CMP Sodium 131 mmol/L (136-145) L 07/15/17 07:20 Potassium 3.4 mmol/L (3.5-5.1) L 07/15/17 07:20 Chloride 94 mmol/L (98-107) L 07/15/17 07:20 Carbon Dioxide 29 mmol/L (22-28) H 07/15/17 07:20 Anion Gap 8 (8-16) 07/15/17 07:20 BUN 13 mg/dl (7-18) 07/15/17 07:20 Creatinine 0.9 mg/dl (0.6-1.3) 07/15/17 07:20 Creat Clearance w eGFR > 60 (>60) 07/15/17 07:20 Random Glucose 91 mg/dl (74-106) 07/15/17 07:20 Lactic Acid 0.8 mmol/L (0.0-2.0) 07/13/17 22:45 Calcium 8.3 mg/dl (8.4-10.2) L 07/15/17 07:20 Phosphorus 2.2 mg/dl (2.5-4.6) L 07/15/17 07:20 Magnesium 1.8 mg/dL (1.8-2.4) 07/15/17 07:20 Total Bilirubin 1.0 mg/dl (0.2-1.0) 07/15/17 07:20 AST 18 U/L (10-42) D 07/15/17 07:20 ALT 16 U/L (10-40) D 07/15/17 07:20 Alkaline Phosphatase 50 U/L (32-92) 07/15/17 07:20 Total Protein 6.4 g/dl (6.4-8.3) 07/15/17 07:20 Albumin 3.3 g/dl (3.5-5.0) L D 07/15/17 07:20 Active Medications Generic Name Dose Route Start Last Admin Trade Name Freq PRN Reason Stop Dose Admin Acetaminophen 650 mg 07/14/17 13:34 Tylenol - PO Q4H PRN FEVER Albuterol Sulfate 1 amp 07/14/17 11:30 Ventolin 0.083% Nebulizer Soln - NEB Q4H PRN SHORT OF BREATH/WHEEZING Atenolol 50 mg 07/14/17 10:00 07/14/17 10:46 Tenormin - PO 50 mg DAILY RAE Administration Budesonide/Formoterol Fumarate 1 puff 07/13/17 22:15 07/14/17 21:48 Symbicort 80/4.5mcg - IH 1 puff BID RAE Administration Famotidine 20 mg 07/14/17 12:30 07/14/17 21:48 Pepcid - PO 20 mg BID RAE Administration Heparin Sodium (Porcine) 5,000 unit 07/13/17 22:00 07/14/17 21:49 Heparin - SQ 5,000 unit BID RAE Administration Metronidazole 500 mg in 100 mls @ 100 mls/hr 07/14/17 02:00 07/15/17 02:00 Flagyl 500mg Premixed Ivpb - IVPB 100 mls/hr Q8H-IV RAE Administration Piperacillin Sod/Tazobactam 50 mls @ 100 mls/hr 07/14/17 10:30 07/15/17 02:34 Sod 3.375 gm/ Dextrose IVPB 100 mls/hr Q8H-IV RAE Administration Protocol Dextrose/Sodium Chloride 1,000 mls @ 100 mls/hr 07/14/17 11:30 07/14/17 11:45 D5-Ns - IV 100 mls/hr ASDIR RAE Administration Lactobacillus Acidophilus 1 tab 07/14/17 14:27 07/14/17 14:35 Bacid - PO 1 tab DAILY RAE Administration Losartan Potassium 25 mg 07/14/17 10:00 07/14/17 10:46 Cozaar - PO 25 mg DAILY RAE Administration Morphine Sulfate 4 mg 07/13/17 22:00 07/14/17 19:19 Morphine Sulfate IVPUSH 4 mg Q6H PRN Administration PAIN LEVEL 7 - 10 Nicotine 14 mg 07/14/17 12:30 07/14/17 13:13 Nicoderm Patch - TD 14 mg DAILY RAE Administration Microbiology 07/13/17 22:51 Blood - Peripheral Venous Blood Culture - Preliminary NO GROWTH OBTAINED AFTER 24 HOURS, INCUBATION TO CONTINUE FOR 4 DAYS. 07/13/17 22:51 Blood - Peripheral Venous Blood Culture - Preliminary NO GROWTH OBTAINED AFTER 24 HOURS, INCUBATION TO CONTINUE FOR [address] of abd/pelvis w/contrast: diverticulitis, pneumopertineum w/o abscess chest xray: no infilirates no effusion noted ASSESSMENT/PLAN: 1) GI diverticulitis with perforation - leukocytosis downtrending, patient is afebrile, blood culture is negative to date, continue zosyn and flagyl - serial abdominal exam - npo-->ivf - last colonscopy was 2011 - surgery consulted and followed, Dr Schroeder - ID consulted, Dr Ashraf - appreciate GI input (Tyler) 2) cardiovascular hypertension - continue cozaar and atenolol - b/p at goal 3) pulm copd tobacco smoker - no acute excerbation at this time, continue symbicort and albuterol prn f/e/n - ivf - npo ppx - heparin - pepcid dispo: pt requires inpatient admission Visit type - Emergency Visit Emergency Visit: Yes ED Registration Date: 07/13/17 Care time: The patient presented to the Emergency Department on the above date and was hospitalized for further evaluation of their emergent condition. - New Patient This patient is new to me today: No - Critical Care Critical Care patient: No - Discharge Referral Referred to [facility] No
[2017-07-15] MEDS ORDERED: PT OWN MED DRAWER 7, Y5N ONE ×2 (09:21→21:22)
[2017-07-15] MEDS: LOSARTAN POTASSIUM 25 MG TABLET PO SCH (09:27)
[2017-07-15] MEDS: LACTOBACILLUS ACIDOPHILUS 1 TABLET PO SCH (09:27)
[2017-07-15] MEDS: HEPARIN NA (PORCINE) 5,000 UNITS/ML 1ML VIAL SQ SCH ×2 (09:28→21:24)
[2017-07-15] MEDS: FAMOTIDINE 20 MG TABLET PO SCH ×2 (09:28→21:24)
[2017-07-15] MEDS: NICOTINE 14 MG/24 HOURS TOPICAL PATCH TD SCH ×2 (09:28→09:32)
[2017-07-15] MEDS: ATENOLOL 50 MG TABLET (FP) PO SCH (09:29)
[2017-07-15] MEDS: BUDESONIDE/FORMETEROL FUMARATE 80/4.5 mcg INHALER IH SCH ×2 (09:29→21:24)
[2017-07-15] MEDS ORDERED: ALBUTEROL SO4 2.5/IPRATROPIUM 0.5 INH SOL 3 ML VIAL.NEB. NEB ONE (09:46)
[2017-07-15 10:02] LABS: ALBUMIN 3.3 g/dl (3.5-5.0); ALK PHOS 50 U/L (32-92); ANION GAP 8 (8-16); BLOOD UREA NITROGEN 13 mg/dl (7-18); CALCIUM 8.3 mg/dl (8.4-10.2); CHLORIDE 94 mmol/L (98-107); CO2 29 mmol/L (22-28); CREATININE 0.9 mg/dl (0.6-1.3); GLUCOSE,RANDOM 91 mg/dl (74-106); MAGNESIUM 1.8 mg/dL (1.8-2.4); PHOSPHOROUS 2.2 mg/dl (2.5-4.6); POTASSIUM 3.4 mmol/L (3.5-5.1); SGOT/AST 18 U/L (10-42); SGPT/ALT 16 U/L (10-40); SODIUM 131 mmol/L (136-145); TOT PROT 6.4 g/dl (6.4-8.3)
[2017-07-15] MEDS ORDERED: POTASSIUM CHLORIDE TABS 20 MEQ TABLET.ER (FP) PO ONE (10:15)
[2017-07-15] MEDS ORDERED: D5-NS + 20 MEQ KCL - 20 MEQ/1,000 ML INFUS.BAG IV SCH (10:15)
[2017-07-15] MEDS ORDERED: MAGNESIUM 1GM/D5W 100ML - 100 ML IVPB IVPB ONE (10:30)
[2017-07-15] MEDS ORDERED: SODIUM PHOSPHATE - 15 MM in SODIUM CHLORIDE 250 ML IVPB ONE (10:45)
--- NOTE | 2017-07-15 11:06 | PN ---
Progress Note, Physician History of Present Illness: Awake, alert Seated in bed No c/o abdominal pain No fever/ chills No N/V Reports normal BM day before yesterday Lo9w grade temp WBC pending Blood c/s prelim negative - Current Medication List Current Medications: Active Medications Acetaminophen (Tylenol -) 650 mg PO Q4H PRN PRN Reason: FEVER Albuterol Sulfate (Ventolin 0.083% Nebulizer Soln -) 1 amp NEB Q4H PRN PRN Reason: SHORT OF BREATH/WHEEZING Atenolol (Tenormin -) 50 mg PO DAILY [facility] Last Admin: 07/15/17 09:29 Dose: 50 mg Budesonide/Formoterol Fumarate (Symbicort 80/4.5mcg -) 1 puff IH BID [facility] Last Admin: 07/15/17 09:29 Dose: 1 puff Famotidine (Pepcid -) 20 mg PO BID [facility] Last Admin: 07/15/17 09:28 Dose: 20 mg Heparin Sodium (Porcine) (Heparin -) 5,000 unit SQ BID [facility] Last Admin: 07/15/17 09:28 Dose: 5,000 unit Metronidazole (Flagyl 500mg Premixed Ivpb -) 500 mg in 100 mls @ 100 mls/hr IVPB Q8H-IV [facility] Last Admin: 07/15/17 09:27 Dose: 100 mls/hr Piperacillin Sod/Tazobactam (Sod 3.375 gm/ Dextrose) 50 mls @ 100 mls/hr IVPB Q8H-IV RAE PRN Reason: Protocol Last Admin: 07/15/17 10:49 Dose: 100 mls/hr Sodium Phosphate 15 mm/ Sodium (Chloride) 255 mls @ 62.5 mls/hr IVPB ONCE ONE Stop: 07/15/17 14:49 Dextrose/Sodium Chloride (Dextrose 5%-Normal Saline+20 Meq Kcl -) 20 meq in 1, 000 mls @ 83 mls/hr IV ASDIR [facility] Lactobacillus Acidophilus (Bacid -) 1 tab PO DAILY [facility] Last Admin: 07/15/17 09:27 Dose: 1 tab Losartan Potassium (Cozaar -) 25 mg PO DAILY [facility] Last Admin: 07/15/17 09:27 Dose: 25 mg Morphine Sulfate (Morphine Sulfate) 4 mg IVPUSH Q6H PRN PRN Reason: PAIN LEVEL 7 - 10 Last Admin: 07/14/17 19:19 Dose: 4 mg Nicotine (Nicoderm Patch -) 14 mg TD DAILY RAE Last Admin: 07/15/17 09:32 Dose: Not Given - Objective Vital Signs: Vital Signs Temperature 98.1 F 07/15/17 08:00 Pulse Rate 70 07/15/17 08:00 Respiratory Rate 18 07/15/17 08:00 Blood Pressure 123/70 07/15/17 08:00 O2 Sat by Pulse Oximetry (%) 96 07/15/17 06:35 Constitutional: Yes: No Distress Eyes: Yes: Conjunctiva Clear Cardiovascular: Yes: Regular Rate and Rhythm, S1, S2 Respiratory: Yes: CTA Bilaterally Gastrointestinal: Yes: Normal Bowel Sounds, Soft, Tenderness, Other (mild RLQ tenderness to deep palpation) Edema: No Labs: CBC, BMP 07/15/17 07:20 07/15/17 07:20 INR, PTT INR 1.24 (0.82-1.09) H 07/13/17 16:42 Assessment/Plan Acute complicated sigmoid diverticulitis Leukocytosis-improved Await c/s Continue empiric zosyn/ flagyl
[2017-07-15] MEDS: ACETAMINOPHEN 325 MG TABLET (FP) PO PRN (11:13)
[2017-07-15] MEDS: D5-NS + 20 MEQ KCL - 20 MEQ/1,000 ML INFUS.BAG IV SCH (11:16)
--- NOTE | 2017-07-15 18:01 | PN ---
Progress Note (short form) - Note Progress Note: surgery 07/15 pt seen and examined. better today. tmax 100.3, wbc 15 abd- soft, still distended, improved lower abd tenderness Plan- keep npo. cont iv abx. will follow. 07/14 pt seen and examined. full consult dictated. 61m with last colonoscopy 7 years ago, presents with lower abd pain, leukocytosis, and ct showing perforated viscous likley sigmoid diverticulitis. pt admitted with iv abx. abx changed to zosyn. fever 100.3. wbc 18. abd- soft, moderate distension, voluntary guarding, lower abd tendernss > upper. some rebound Plan- clinically perforated sigmoid diverticulitis > perforated malignancy. Pt is non toxic despite ct findings. Suspect sealed perforation. Pt offered exploratory surgery with colostomy and declines. He wants medical management and assumes risk of worsening sepsis and delay in diagnosis of malignancy. Spoke with in detail as well who agrees with his plan. will keep npo. cont zosyn. interval colonoscopy and sigmoid colectomy if medical management successful. Exploratory surgery if pt shows worsening sepsis.
[2017-07-15] MEDS: morphine SULFATE 4 MG/ML VIAL IVPUSH PRN (18:25)
--- NOTE | 2017-07-15 20:32 | PN ---
Progress Note (short form) - Note Progress Note: Patient seen and chart/labs reviewed with consult dictated. Patient with likely perforated diverticulitis and is currently on IV antibiotics, NPO and clinically improving. Has refused surgical intervention at this time and agree with plans for close monitoring along with IV antibiotics. Doubt perforated colon malignancy but will arrange for elective colonoscopy 2-3 months after resolution of current acute infection. In interim, agree with plans per ID and Surgery; will follow as needed.
--- NOTE | 2017-07-15 21:13 | CONS ---
DATE OF CONSULTATION: 07/15/2017 Asked to evaluate this 61-year-old gentleman admitted with likely acute diverticulitis. The patient is a 61-year-old gentleman with a history of hypertension, nephrolithiasis, and recent admission with lower abdominal pain, cramping, and possible chills or fever. The patient was admitted via the emergency room with an elevated white count and a CAT scan showing some free air under the diaphragm and likely acute diverticulitis involving the sigmoid colon. The patient refused surgical intervention and is currently on IV antibiotics. His initial white count was 19.7 and has slowly decreased to 15.6. His hematocrit is stable currently at 41.5. The patient has normal chemistries with the exception of a serum sodium of 131. His liver chemistries are normal. He currently is afebrile on antibiotics, with stable vital signs. PHYSICAL EXAMINATION: General: He is a well-developed, well-nourished gentleman. HEENT: [place] conjunctiva. Lungs: Clear. Cardiac: Regular rate and rhythm. Abdomen: Soft. There is some mild tenderness to deep palpation in the left side of the abdomen, primarily lower, without obvious rebound or guarding currently. Patient with likely acute diverticulitis with perforation and some free air under the diaphragm. He opted to not have surgery and is currently being treated conservatively with IV antibiotics and being kept n.p.o. He appears to be clinically improving and is being followed by Infectious Disease and surgical consult. At the present time, I will follow him along with current consults, and if there is evidence of deterioration, he may need emergent surgery. If he continues to improve, an elective colonoscopy can be performed in 2-3 months to rule out any other occult pathology such as a neoplasm presenting with perforation. However, suspect most likely acute diverticulitis. Will follow as needed. ILIANA LIAO M.D. [place]/[id number]
[2017-07-16] MEDS: morphine SULFATE 4 MG/ML VIAL IVPUSH PRN ×5 (00:12→23:20)
[2017-07-16] MEDS: PIPERACILLIN/TAZOB 3.375 GM 3.375 GM in DEXTROSE 5%-WATER - 50 ML IVPB SCH ×3 (01:11→17:38)
[2017-07-16 08:36] LABS: MEAN PLT VOLUME 8.8 fl (7.5-11.1)
[2017-07-16 08:37] LABS: ANION GAP 7 (8-16); BLOOD UREA NITROGEN 14 mg/dl (7-18); CALCIUM 8.4 mg/dl (8.4-10.2); CHLORIDE 100 mmol/L (98-107); CO2 28 mmol/L (22-28); CREATININE 0.8 mg/dl (0.6-1.3); GLUCOSE,RANDOM 106 mg/dl (74-106); MAGNESIUM 2.1 mg/dL (1.8-2.4); POTASSIUM 3.9 mmol/L (3.5-5.1); SODIUM 135 mmol/L (136-145)
[2017-07-16 08:40] LABS: HEMATOCRIT 44.1 % (35.4-49); HEMOGLOBIN 15.1 GM/dl (11.7-16.9); MCH 33.3 pg (25.7-33.7); MCHC 34.2 g/dl (32.0-35.9); MEAN CELL VOLUME 97.5 fl (80-96); PLATELET COUNT 252 K/MM3 (134-434); RBC 4.52 M/mm3 (4.00-5.60); WHITE BLOOD COUNT 12.7 K/mm3 (4.0-10.8)
[2017-07-16 08:50] LABS: ADD RBC MORPHOLOGY YES
--- NOTE | 2017-07-16 09:07 | PN ---
Physical Exam: SUBJECTIVE: Patient seen and examined at the bedside. Ambulating in room, in no distress. Reports mild lower abd pain, wants pain meds. Reports normal BM yesterday and today OBJECTIVE: Vital Signs Period Temp Pulse Resp BP Sys/Skinner Pulse Ox Last 24 Hr 98.3 F-99.9 F 62-68 16-18 98-122/58-66 96-98 GENERAL: The patient is awake, alert, and fully oriented, in no acute distress. HEAD: Normal with no signs of trauma. EYES: PERRL, extraocular movements intact, sclera anicteric, conjunctiva clear. No ptosis. ENT: Ears normal, nares patent, oropharynx clear without exudates NECK: Trachea midline, full range of motion, supple. LUNGS:expiratory wheezing noted on bilateral lungs ABDOMEN: Soft, nontender, mildly distended, hypoactive bowel sounds, no guarding , no rebound, no hepatosplenomegaly, no masses. EXTREMITIES: no edema. NEUROLOGICAL:Normal speech, steady gait PSYCH: Normal mood, normal affect. SKIN: Warm, dry, normal turgor, no rashes or lesions noted Laboratory Results - last 24 hr 07/15/17 07/16/17 07/16/17 07:20 07:25 07:25 WBC 12.7 H RBC 4.52 Hgb 15.1 Hct 44.1 MCV 97.5 H MCH 33.3 MCHC 34.2 RDW 13.0 Plt Count 252 D MPV 8.8 Neutrophils % No Result Required. Lymphocytes % No Result Required. Sodium 131 L 135 L Potassium 3.4 L 3.9 Chloride 94 L 100 Carbon Dioxide 29 H 28 Anion Gap 8 7 L BUN 13 14 Creatinine 0.9 0.8 Creat Clearance w eGFR > 60 Random Glucose 91 106 Calcium 8.3 L 8.4 Phosphorus 2.2 L Magnesium 1.8 2.1 Total Bilirubin 1.0 AST 18 D ALT 16 D Alkaline Phosphatase 50 Total Protein 6.4 Albumin 3.3 L D Active Medications Generic Name Dose Route Start Last Admin Trade Name Freq PRN Reason Stop Dose Admin Acetaminophen 650 mg 07/14/17 13:34 07/15/17 11:13 Tylenol - PO 650 mg Q4H PRN Administration FEVER Albuterol Sulfate 1 amp 07/14/17 11:30 Ventolin 0.083% Nebulizer Soln - NEB Q4H PRN SHORT OF BREATH/WHEEZING Atenolol 50 mg 07/14/17 10:00 07/15/17 09:29 Tenormin - PO 50 mg DAILY RAE Administration Budesonide/Formoterol Fumarate 1 puff 07/13/17 22:15 07/15/17 21:24 Symbicort 80/4.5mcg - IH 1 puff BID RAE Administration Famotidine 20 mg 07/14/17 12:30 07/15/17 21:24 Pepcid - PO 20 mg BID RAE Administration Heparin Sodium (Porcine) 5,000 unit 07/13/17 22:00 07/15/17 21:24 Heparin - SQ 5,000 unit BID RAE Administration Metronidazole 500 mg in 100 mls @ 100 mls/hr 07/14/17 02:00 07/16/17 02:07 Flagyl 500mg Premixed Ivpb - IVPB 100 mls/hr Q8H-IV RAE Administration Piperacillin Sod/Tazobactam 50 mls @ 100 mls/hr 07/14/17 10:30 07/16/17 01:11 Sod 3.375 gm/ Dextrose IVPB 100 mls/hr Q8H-IV RAE Administration Protocol Dextrose/Sodium Chloride 20 meq in 1,000 mls @ 83 mls/hr 07/15/17 10:45 07/15 11:16 Dextrose 5%-Normal Saline+20 Meq Kcl - IV 83 mls/hr ASDIR RAE Administration Lactobacillus Acidophilus 1 tab 07/14/17 14:27 07/15/17 09:27 Bacid - PO 1 tab DAILY RAE Administration Losartan Potassium 25 mg 07/14/17 10:00 07/15/17 09:27 Cozaar - PO 25 mg DAILY RAE Administration Morphine Sulfate 4 mg 07/13/17 22:00 07/16/17 00:12 Morphine Sulfate IVPUSH 4 mg Q6H PRN Administration PAIN LEVEL 7 - 10 Nicotine 14 mg 07/14/17 12:30 07/15/17 09:32 Nicoderm Patch - TD Not Given DAILY RAE ASSESSMENT/PLAN: Patient is a 61 year old male with a significant past medical history of hypertension and current daily smoker. He was admitted on 07/13/2017 fo diverticulitis with pneumoperiteneum. Imaging: CT of abd/pelvis w/contrast: diverticulitis, pneumopertineum w/o abscess GI Diverticulitis with perforation, acute WBC trending down, no fevers x 48 hours Blood cultures negative On Zosyn and Flagyl Seen by GI, notes reviewed Remains NPO with IVF hydration GI and Surgery following CV: Hypertension, controlled On cozaar and atenolol Pulmonary: Active smoker Refusing nicotine patch F.E.N. Fluids: D5, NS 20meq @ 83 Electrolytes: monitor with daily labs Nutrition: NPO as per surgery Prophy: DVT: ambulation, on heparin GI: Pepcid Disposition: full code Visit type - Emergency Visit Emergency Visit: Yes ED Registration Date: 07/13/17 Care time: The patient presented to the Emergency Department on the above date and was hospitalized for further evaluation of their emergent condition. - New Patient This patient is new to me today: Yes Date on this admission: 07/16/17 - Critical Care Critical Care patient: No - Discharge Referral Referred to [facility] No
[2017-07-16] MEDS ORDERED: PT OWN MED DRAWER 7, Y5N ONE (09:43)
[2017-07-16] MEDS: FAMOTIDINE 20 MG TABLET PO SCH ×2 (09:49→21:25)
[2017-07-16] MEDS: LACTOBACILLUS ACIDOPHILUS 1 TABLET PO SCH (09:49)
[2017-07-16] MEDS: ATENOLOL 50 MG TABLET (FP) PO SCH (09:50)
[2017-07-16] MEDS: HEPARIN NA (PORCINE) 5,000 UNITS/ML 1ML VIAL SQ SCH ×2 (09:50→21:25)
[2017-07-16] MEDS: NICOTINE 14 MG/24 HOURS TOPICAL PATCH TD SCH (09:50)
[2017-07-16] MEDS: LOSARTAN POTASSIUM 25 MG TABLET PO SCH (09:50)
[2017-07-16] MEDS: BUDESONIDE/FORMETEROL FUMARATE 80/4.5 mcg INHALER IH SCH ×2 (09:50→21:25)
[2017-07-16 10:25] LABS: PLATELET ESTIMATE ADEQUATE
[2017-07-16] MEDS: D5-NS + 20 MEQ KCL - 20 MEQ/1,000 ML INFUS.BAG IV SCH (10:59)
--- NOTE | 2017-07-16 11:07 | PN ---
Progress Note (short form) - Note Progress Note: surgery 07/16 pt seen and exmained. feels better. bm and flatus abd- soft, minimal llq tenderness, minimal distension Selected Entries 07/15/17 22:00 Temperature 99.9 F H Laboratory Tests 07/15/17 07/16/17 07:20 07:25 WBC 15.6 H 12.7 H Plan- cont npo, cont iv abx. pt continues to improve 07/15 pt seen and examined. better today. tmax 100.3, wbc 15 abd- soft, still distended, improved lower abd tenderness Plan- keep npo. cont iv abx. will follow. 07/14 pt seen and examined. full consult dictated. 61m with last colonoscopy 7 years ago, presents with lower abd pain, leukocytosis, and ct showing perforated viscous likley sigmoid diverticulitis. pt admitted with iv abx. abx changed to zosyn. fever 100.3. wbc 18. abd- soft, moderate distension, voluntary guarding, lower abd tendernss > upper. some rebound Plan- clinically perforated sigmoid diverticulitis > perforated malignancy. Pt is non toxic despite ct findings. Suspect sealed perforation. Pt offered exploratory surgery with colostomy and declines. He wants medical management and assumes risk of worsening sepsis and delay in diagnosis of malignancy. Spoke with in detail as well who agrees with his plan. will keep npo. cont zosyn. interval colonoscopy and sigmoid colectomy if medical management successful. Exploratory surgery if pt shows worsening sepsis.
[2017-07-17] MEDS ORDERED: PT OWN MED DRAWER 7, Y5N ONE ×2 (01:20→21:06)
[2017-07-17] MEDS: PIPERACILLIN/TAZOB 3.375 GM 3.375 GM in DEXTROSE 5%-WATER - 50 ML IVPB SCH ×2 (02:00→11:09)
[2017-07-17] MEDS: morphine SULFATE 4 MG/ML VIAL IVPUSH PRN ×4 (06:00→21:15)
[2017-07-17 09:29] LABS: BASO % 0.6 % (0-2.0); EOS % 2.2 % (0-4.5); LYMPH % 12.6 % (8-40); MEAN PLT VOLUME 8.6 fl (7.5-11.1); MONO % 10.8 % (3.8-10.2); NEUT % 73.8 % (42.8-82.8)
[2017-07-17 09:32] LABS: ALBUMIN 2.7 g/dl (3.5-5.0); ALK PHOS 45 U/L (32-92); ANION GAP 10 (8-16); BLOOD UREA NITROGEN 13 mg/dl (7-18); CALCIUM 7.9 mg/dl (8.4-10.2); CHLORIDE 98 mmol/L (98-107); CO2 25 mmol/L (22-28); GLUCOSE,RANDOM 95 mg/dl (74-106); MAGNESIUM 1.9 mg/dL (1.8-2.4); POTASSIUM 3.9 mmol/L (3.5-5.1); SGOT/AST 38 U/L (10-42); SGPT/ALT 23 U/L (10-40); SODIUM 133 mmol/L (136-145); TOT PROT 5.6 g/dl (6.4-8.3)
[2017-07-17 09:43] LABS: CREATININE < 0.8 mg/dl (0.6-1.3)
[2017-07-17 09:44] LABS: BILIRUBIN,TOTAL 0.6 mg/dl (0.2-1.0)
[2017-07-17 09:45] LABS: HEMATOCRIT 40.4 % (35.4-49); HEMOGLOBIN 13.7 GM/dl (11.7-16.9); MCH 32.9 pg (25.7-33.7); MEAN CELL VOLUME 96.9 fl (80-96); PLATELET COUNT 231 K/MM3 (134-434); RBC 4.17 M/mm3 (4.00-5.60); RDW 12.8 % (11.9-15.9)
[2017-07-17] MEDS: HEPARIN NA (PORCINE) 5,000 UNITS/ML 1ML VIAL SQ SCH ×3 (09:48→21:15)
[2017-07-17] MEDS: LOSARTAN POTASSIUM 25 MG TABLET PO SCH (09:48)
[2017-07-17] MEDS: LACTOBACILLUS ACIDOPHILUS 1 TABLET PO SCH (09:48)
[2017-07-17] MEDS: BUDESONIDE/FORMETEROL FUMARATE 80/4.5 mcg INHALER IH SCH ×2 (09:49→21:15)
[2017-07-17] MEDS: ATENOLOL 50 MG TABLET (FP) PO SCH (09:49)
[2017-07-17] MEDS: NICOTINE 14 MG/24 HOURS TOPICAL PATCH TD SCH (09:49)
[2017-07-17] MEDS: FAMOTIDINE 20 MG TABLET PO SCH (09:49)
--- NOTE | 2017-07-17 11:00 | PN ---
Progress Note (short form) - Note Progress Note: Subjective: The patient was seen and examined at the bedside, he reports his pain medication every 6 hours is not working and would like it to be changed to more frequently. Current Medications Generic Name Dose Route Start Last Admin Trade Name Freq PRN Reason Stop Dose Admin Acetaminophen 650 mg 07/14/17 13:34 07/15/17 11:13 Tylenol - PO 650 mg Q4H PRN Administration FEVER Albuterol Sulfate 1 amp 07/14/17 11:30 07/16/17 17:39 Ventolin 0.083% Nebulizer Soln - NEB 1 amp Q4H PRN Administration SHORT OF BREATH/WHEEZING Atenolol 50 mg 07/14/17 10:00 07/17/17 09:49 Tenormin - PO 50 mg DAILY RAE Administration Budesonide/Formoterol Fumarate 1 puff 07/13/17 22:15 07/17/17 09:49 Symbicort 80/4.5mcg - IH 1 puff BID RAE Administration Famotidine 20 mg 07/14/17 12:30 07/17/17 09:49 Pepcid - PO 20 mg BID RAE Administration Heparin Sodium (Porcine) 5,000 unit 07/13/17 22:00 07/17/17 09:48 Heparin - SQ 5,000 unit BID RAE Administration Metronidazole 500 mg in 100 mls @ 100 mls/hr 07/14/17 02:00 07/17/17 09:48 Flagyl 500mg Premixed Ivpb - IVPB 100 mls/hr Q8H-IV RAE Administration Piperacillin Sod/Tazobactam 50 mls @ 100 mls/hr 07/14/17 10:30 07/17/17 02:00 Sod 3.375 gm/ Dextrose IVPB 100 mls/hr Q8H-IV RAE Administration Protocol Dextrose/Sodium Chloride 20 meq in 1,000 mls @ 83 mls/hr 07/15/17 10:45 07/16 10:59 Dextrose 5%-Normal Saline+20 Meq Kcl - IV 83 mls/hr ASDIR RAE Administration Lactobacillus Acidophilus 1 tab 07/14/17 14:27 07/17/17 09:48 Bacid - PO 1 tab DAILY RAE Administration Losartan Potassium 25 mg 07/14/17 10:00 07/17/17 09:48 Cozaar - PO 25 mg DAILY RAE Administration Morphine Sulfate 4 mg 07/17/17 10:42 Morphine Sulfate IVPUSH Q4H PRN PAIN LEVEL 7 - 10 Nicotine 14 mg 07/14/17 12:30 07/17/17 09:49 Nicoderm Patch - TD Not Given DAILY [facility] Objective: Vital Signs Period Temp Pulse Resp BP Sys/Skinner Pulse Ox Last 24 Hr 98.2 F-99.1 F 72-98 18-20 108-134/77-94 97-99 Physical Exam: General: NAD, A&Ox3 Abd: Soft, mild lower abdominal tenderness. Normoactive bowel sounds CBCD WBC 11.0 K/mm3 (4.0-10.8) H 07/17/17 06:06 RBC 4.17 M/mm3 (4.00-5.60) 07/17/17 06:06 Hgb 13.7 GM/dl (11.7-16.9) 07/17/17 06:06 Hct 40.4 % (35.4-49) 07/17/17 06:06 MCV 96.9 fl (80-96) H 07/17/17 06:06 MCHC 34.0 g/dl (32.0-35.9) 07/17/17 06:06 RDW 12.8 % (11.9-15.9) 07/17/17 06:06 Plt Count 231 K/MM3 (134-434) 07/17/17 06:06 MPV 8.6 fl (7.5-11.1) 07/17/17 06:06 CMP Sodium 133 mmol/L (136-145) L 07/17/17 06:06 Potassium 3.9 mmol/L (3.5-5.1) 07/17/17 06:06 Chloride 98 mmol/L (98-107) 07/17/17 06:06 Carbon Dioxide 25 mmol/L (22-28) 07/17/17 06:06 Anion Gap 10 (8-16) 07/17/17 06:06 BUN 13 mg/dl (7-18) 07/17/17 06:06 Creatinine < 0.8 mg/dl (0.6-1.3) 07/17/17 06:06 Creat Clearance w eGFR > 60 (>60) 07/17/17 06:06 Random Glucose 95 mg/dl (74-106) 07/17/17 06:06 Calcium 7.9 mg/dl (8.4-10.2) L 07/17/17 06:06 Total Bilirubin 0.6 mg/dl (0.2-1.0) D 07/17/17 06:06 AST 38 U/L (10-42) D 07/17/17 06:06 ALT 23 U/L (10-40) D 07/17/17 06:06 Alkaline Phosphatase 45 U/L (32-92) 07/17/17 06:06 Total Protein 5.6 g/dl (6.4-8.3) L 07/17/17 06:06 Albumin 2.7 g/dl (3.5-5.0) L 07/17/17 06:06 Microbiology 07/13/17 22:51 Blood - Peripheral Venous Blood Culture - Preliminary NO GROWTH OBTAINED AFTER 72 HOURS, INCUBATION TO CONTINUE FOR 2 DAYS. 07/13/17 22:51 Blood - Peripheral Venous Blood Culture - Preliminary NO GROWTH OBTAINED AFTER 72 HOURS, INCUBATION TO CONTINUE FOR 2 DAYS. Assessment: This is a 61 year old male with PMHx of HTN, current daily smoker, who presented to the ED with lower abdominal pain and cramping. Plan: 1) Acute diverticulitis with perforation - CTAP with pneumoperitoneum, findings consistent with acute diverticulitis without abscess formation - WBC continue to trend down - Patient is non-toxic appearing - Blood cultures with NGTD - Continue Zosyn - Continue Flagyl - Continue NPO status - Appreciate GI consult: colonoscopy in 2-3 months - Appreciate surgery consult: patient continues to refuse any surgical intervention 2) HTN - On Cozaar and Atenolol 3) Daily cigarette smoker - Continue nicotine patch 4) F/E/N: - Patient has been NPO since 07/11 - Start Clinimix - Hyponatremia: continue to monitor 5) Prophylaxis: - Protonix 40mg IVP daily - SCDs bilaterally - Heparin 5,000u sq tid 6) Dispo: - Requires continued inpatient care CODE STATUS: FULL CODE Visit type - Emergency Visit Emergency Visit: Yes ED Registration Date: 07/13/17 Care time: The patient presented to the Emergency Department on the above date and was hospitalized for further evaluation of their emergent condition. - New Patient This patient is new to me today: No - Critical Care Critical Care patient: No
[2017-07-17] MEDS: AMINO ACIDS 4.25%/D5W 1,000 ML IV SCH ×2 (11:20→23:21)
--- NOTE | 2017-07-17 12:43 | PN ---
Progress Note (short form) - Note Progress Note: surgery pt seen and examined. feels well. still requiring narcotics afebrile abd- soft, less distended, minimal tenderness, Laboratory Tests 07/17/17 06:06 WBC 11.0 H Plan- cont npo and ivf. wbc nearly normal. If patient stlll with pain tomorrow would repeat ct. otherwise may start liquids.
[2017-07-17] MEDS: PIPERACILLIN/TAZOB 3.375 GM 3.375 GM/50 ML BAG IVPB SCH (19:00)
[2017-07-18] MEDS: PIPERACILLIN/TAZOB 3.375 GM 3.375 GM/50 ML BAG IVPB SCH ×3 (01:10→18:19)
[2017-07-18] MEDS: HEPARIN NA (PORCINE) 5,000 UNITS/ML 1ML VIAL SQ SCH ×3 (06:23→21:21)
--- NOTE | 2017-07-18 08:13 | PN ---
Physical Exam: SUBJECTIVE: Patient seen and examined, reports slight improvement in abdominal pain, denies any tactile fevers OBJECTIVE::Patient is a 61 y/o male with a past medical history of hypertension , patient was admitted from the emergency department for diverticulitis with pneumoperiteneum. Vital Signs Period Temp Pulse Resp BP Sys/Skinner Pulse Ox Last 24 Hr 98.5 F-99.1 F 58-62 18-18 106-125/66-68 96-96 GENERAL: The patient is awake, alert, and fully oriented, in no acute distress. HEAD: Normal with no signs of trauma. EYES: PERRL, extraocular movements intact, sclera anicteric, conjunctiva clear. No ptosis. ENT: Ears normal, nares patent, oropharynx clear without exudates, moist mucous membranes. NECK: Trachea midline, full range of motion, supple. LUNGS: Breath sounds equal, clear to auscultation bilaterally, no wheezes, no crackles, no accessory muscle use. HEART: Regular rate and rhythm, S1, S2 without murmur, rub or gallop. ABDOMEN: Soft, tenderness upon deep palpation to left lower quadrant, nontender umbilical hernia reducible, nondistended, normoactive bowel sounds, no guarding , no rebound, no hepatosplenomegaly, no masses. EXTREMITIES: 2+ pulses, warm, well-perfused, no edema. NEUROLOGICAL: Cranial nerves II through XII grossly intact. Normal speech, gait not observed. PSYCH: Normal mood, normal affect. SKIN: Warm, dry, normal turgor, no rashes or lesions noted Laboratory Results - last 24 hr CBC WBC 14.9 K/mm3 (4.0-10.8) H D 07/18/17 07:43 RBC 4.76 M/mm3 (4.00-5.60) 07/18/17 07:43 Hgb 15.9 GM/dl (11.7-16.9) D 07/18/17 07:43 Hct 46.2 % (35.4-49) 07/18/17 07:43 MCV 97.0 fl (80-96) H 07/18/17 07:43 MCH 33.4 pg (25.7-33.7) 07/18/17 07:43 MCHC 34.4 g/dl (32.0-35.9) 07/18/17 07:43 RDW 12.6 % (11.9-15.9) 07/18/17 07:43 Plt Count 299 K/MM3 (134-434) D 07/18/17 07:43 MPV 8.1 fl (7.5-11.1) 07/18/17 07:43 Neutrophils % 77.4 % (42.8-82.8) 07/18/17 07:43 Neutrophils % (Manual) 87.0 % (42.8-82.8) H 07/16/17 07:25 Band Neutrophils % 24.0 % (0-10) H 07/13/17 16:42 Lymphocytes % 10.7 % (8-40) 07/18/17 07:43 Lymphocytes % (Manual) 8.0 % (8-40) 07/16/17 07:25 Monocytes % 8.7 % (3.8-10.2) 07/18/17 07:43 Monocytes % (Manual) 5 % (3.8-10.2) D 07/16/17 07:25 Eosinophils % 1.8 % (0-4.5) 07/18/17 07:43 Basophils % 1.4 % (0-2.0) 07/18/17 07:43 Platelet Estimate Adequate 07/16/17 07:25 CMP Sodium 130 mmol/L (136-145) L 07/18/17 07:43 Potassium 4.1 mmol/L (3.5-5.1) 07/18/17 07:43 Chloride 97 mmol/L (98-107) L 07/18/17 07:43 Carbon Dioxide 26 mmol/L (22-28) 07/18/17 07:43 Anion Gap 7 (8-16) L 07/18/17 07:43 BUN 18 mg/dl (7-18) D 07/18/17 07:43 Creatinine 0.8 mg/dl (0.6-1.3) 07/18/17 07:43 Creat Clearance w eGFR > 60 (>60) 07/18/17 07:43 Random Glucose 106 mg/dl (74-106) 07/18/17 07:43 Lactic Acid 0.8 mmol/L (0.0-2.0) 07/13/17 22:45 Calcium 8.8 mg/dl (8.4-10.2) 07/18/17 07:43 Phosphorus 2.2 mg/dl (2.5-4.6) L 07/15/17 07:20 Magnesium 1.9 mg/dL (1.8-2.4) 07/17/17 06:06 Total Bilirubin 0.8 mg/dl (0.2-1.0) D 07/18/17 07:43 AST 64 U/L (10-42) H D 07/18/17 07:43 ALT 45 U/L (10-40) H D 07/18/17 07:43 Alkaline Phosphatase 46 U/L (32-92) 07/18/17 07:43 Total Protein 6.9 g/dl (6.4-8.3) D 07/18/17 07:43 Albumin 3.3 g/dl (3.5-5.0) L D 07/18/17 07:43 Active Medications Generic Name Dose Route Start Last Admin Trade Name Freq PRN Reason Stop Dose Admin Acetaminophen 650 mg 07/14/17 13:34 07/15/17 11:13 Tylenol - PO 650 mg Q4H PRN Administration FEVER Albuterol Sulfate 1 amp 07/14/17 11:30 07/16/17 17:39 Ventolin 0.083% Nebulizer Soln - NEB 1 amp Q4H PRN Administration SHORT OF BREATH/WHEEZING Atenolol 50 mg 07/14/17 10:00 07/17/17 09:49 Tenormin - PO 50 mg DAILY RAE Administration Budesonide/Formoterol Fumarate 1 puff 07/13/17 22:15 07/17/17 21:15 Symbicort 80/4.5mcg - IH 1 puff BID RAE Administration Heparin Sodium (Porcine) 5,000 unit 07/17/17 14:00 07/18/17 06:23 Heparin - SQ 5,000 unit TID RAE Administration Metronidazole 500 mg in 100 mls @ 100 mls/hr 07/14/17 02:00 07/18/17 02:07 Flagyl 500mg Premixed Ivpb - IVPB 100 mls/hr Q8H-IV RAE Administration Piperacillin Sod/Tazobactam Sod 3.375 gm in 50 mls @ 100 mls/hr 07/17/17 10: 59 07/18/17 01:10 Zosyn 3.375gm Ivpb (Pre-Docked) IVPB 100 mls/hr Q8H-IV RAE Administration Protocol Amino Acids 1,000 mls @ 84 mls/hr 07/17/17 11:15 07/17/17 23:21 Clinimix - IV 84 mls/hr Q12H RAE Administration Lactobacillus Acidophilus 1 tab 07/14/17 14:27 07/17/17 09:48 Bacid - PO 1 tab DAILY RAE Administration Losartan Potassium 25 mg 07/14/17 10:00 07/17/17 09:48 Cozaar - PO 25 mg DAILY RAE Administration Morphine Sulfate 4 mg 07/17/17 10:42 07/17/17 21:15 Morphine Sulfate IVPUSH 4 mg Q4H PRN Administration PAIN LEVEL 7 - 10 Nicotine 14 mg 07/14/17 12:30 07/17/17 09:49 Nicoderm Patch - TD Not Given DAILY RAE Pantoprazole Sodium 40 mg 07/18/17 10:00 Protonix Iv IVPUSH DAILY RAE Microbiology 07/13/17 22:51 Blood - Peripheral Venous Blood Culture - Preliminary NO GROWTH OBTAINED AFTER 96 HOURS, INCUBATION TO CONTINUE FOR 1 DAYS. 07/13/17 22:51 Blood - Peripheral Venous Blood Culture - Preliminary NO GROWTH OBTAINED AFTER 96 HOURS, INCUBATION TO CONTINUE FOR 1 DAYS. IMAGING CTAP with pneumoperitoneum, findings consistent with acute diverticulitis without abscess formation ASSESSMENT/PLAN: ) Acute diverticulitis with perforation - elevated WBC, pt is afebrile, will repeat ct scan of abd/pelvis w/oral and iv contrast - Continue Zosyn and Flagyl - Continue NPO status with climinix - Appreciate GI consult: colonoscopy in 2-3 months - Appreciate surgery consult: patient continues to refuse any surgical intervention 2) HTN - On Cozaar and Atenolol 3) Daily cigarette smoker - Continue nicotine patch 4) F/E/N: - continue Clinimix - Hyponatremia: continue to monitor 5) Prophylaxis: - Protonix 40mg IVP daily - SCDs bilaterally - Heparin 5,000u sq tid 6) Dispo: - Requires continued inpatient care CODE STATUS: FULL CODE Visit type - Emergency Visit Emergency Visit: Yes ED Registration Date: 07/13/17 Care time: The patient presented to the Emergency Department on the above date and was hospitalized for further evaluation of their emergent condition. - New Patient This patient is new to me today: No - Critical Care Critical Care patient: No - Discharge Referral Referred to [facility] No
[2017-07-18 08:25] LABS: ALBUMIN 3.3 g/dl (3.5-5.0); ALK PHOS 46 U/L (32-92); ANION GAP 7 (8-16); BILIRUBIN,TOTAL 0.8 mg/dl (0.2-1.0); BLOOD UREA NITROGEN 18 mg/dl (7-18); CALCIUM 8.8 mg/dl (8.4-10.2); CHLORIDE 97 mmol/L (98-107); CO2 26 mmol/L (22-28); CREATININE 0.8 mg/dl (0.6-1.3); GLUCOSE,RANDOM 106 mg/dl (74-106); POTASSIUM 4.1 mmol/L (3.5-5.1); SGOT/AST 64 U/L (10-42); SGPT/ALT 45 U/L (10-40); SODIUM 130 mmol/L (136-145); TOT PROT 6.9 g/dl (6.4-8.3)
[2017-07-18 08:33] LABS: BASO % 1.4 % (0-2.0); EOS % 1.8 % (0-4.5); HEMATOCRIT 46.2 % (35.4-49); HEMOGLOBIN 15.9 GM/dl (11.7-16.9); LYMPH % 10.7 % (8-40); MCH 33.4 pg (25.7-33.7); MCHC 34.4 g/dl (32.0-35.9); MEAN PLT VOLUME 8.1 fl (7.5-11.1); MONO % 8.7 % (3.8-10.2); NEUT % 77.4 % (42.8-82.8); PLATELET COUNT 299 K/MM3 (134-434); RBC 4.76 M/mm3 (4.00-5.60); RDW 12.6 % (11.9-15.9); WHITE BLOOD COUNT 14.9 K/mm3 (4.0-10.8)
--- NOTE | 2017-07-18 08:55 | PN ---
Progress Note, Physician History of Present Illness: Awake, alert OOB in chair Appears comfortable No c/o abdominal pain No N/V Passing flatus No BM Afebrile WBC elevated today 14.9K Blood c/s negative GI/ Surgical evaluations noted - Current Medication List Current Medications: Active Medications Acetaminophen (Tylenol -) 650 mg PO Q4H PRN PRN Reason: FEVER Last Admin: 07/15/17 11:13 Dose: 650 mg Albuterol Sulfate (Ventolin 0.083% Nebulizer Soln -) 1 amp NEB Q4H PRN PRN Reason: SHORT OF BREATH/WHEEZING Last Admin: 07/16/17 17:39 Dose: 1 amp Atenolol (Tenormin -) 50 mg PO DAILY [facility] Last Admin: 07/17/17 09:49 Dose: 50 mg Budesonide/Formoterol Fumarate (Symbicort 80/4.5mcg -) 1 puff IH BID [facility] Last Admin: 07/17/17 21:15 Dose: 1 puff Heparin Sodium (Porcine) (Heparin -) 5,000 unit SQ TID RAE Last Admin: 07/18/17 06:23 Dose: 5,000 unit Metronidazole (Flagyl 500mg Premixed Ivpb -) 500 mg in 100 mls @ 100 mls/hr IVPB Q8H-IV [facility] Last Admin: 07/18/17 02:07 Dose: 100 mls/hr Piperacillin Sod/Tazobactam Sod (Zosyn 3.375gm Ivpb (Pre-Docked)) 3.375 gm in 50 mls @ 100 mls/hr IVPB Q8H-IV RAE PRN Reason: Protocol Last Admin: 07/18/17 01:10 Dose: 100 mls/hr Amino Acids (Clinimix -) 1,000 mls @ 84 mls/hr IV Q12H RAE Last Admin: 07/17/17 23:21 Dose: 84 mls/hr Lactobacillus Acidophilus (Bacid -) 1 tab PO DAILY [facility] Last Admin: 07/17/17 09:48 Dose: 1 tab Losartan Potassium (Cozaar -) 25 mg PO DAILY [facility] Last Admin: 07/17/17 09:48 Dose: 25 mg Morphine Sulfate (Morphine Sulfate) 4 mg IVPUSH Q4H PRN PRN Reason: PAIN LEVEL 7 - 10 Last Admin: 07/17/17 21:15 Dose: 4 mg Nicotine (Nicoderm Patch -) 14 mg TD DAILY [facility] Last Admin: 07/17/17 09:49 Dose: Not Given Pantoprazole Sodium (Protonix Iv) 40 mg IVPUSH DAILY [facility] - Objective Vital Signs: Vital Signs Temperature 98.5 F 07/17/17 20:00 Pulse Rate 62 07/17/17 20:00 Respiratory Rate 18 07/17/17 20:28 Blood Pressure 125/68 07/17/17 20:00 O2 Sat by Pulse Oximetry (%) 96 07/18/17 08:29 Constitutional: Yes: No Distress Eyes: Yes: Conjunctiva Clear Cardiovascular: Yes: Regular Rate and Rhythm, S1, S2 Respiratory: Yes: CTA Bilaterally Gastrointestinal: Yes: Normal Bowel Sounds, Soft, Abdomen, Obese, Other (Abdo slightly distended No tenderness). No: Tenderness Edema: No Labs: CBC, BMP 07/18/17 07:43 07/18/17 07:43 INR, PTT INR 1.24 (0.82-1.09) H 07/13/17 16:42 Assessment/Plan Acute complicated sigmoid diverticulitis Leukocytosis WBC increased today Continue empiric zosyn/ flagyl Repeat CT A/P R/O abscess formation GI/ Surgical followup
--- NOTE | 2017-07-18 09:47 | PN ---
Progress Note (short form) - Note Progress Note: Patient feels better with less abdominal pain; having some BMs. Denies N/V/ fever. However, has increase in WBC today in spite of IV antibiotics. Afebrile, VSS Abdomen soft +BS no rebound or tenderness to light palpation In view of leukocytosis and possibility of absces/collection formation, would agree with plans for CT abd/pelvis and continuing IV antibiotics/NPO If CT does not show a collection, would repeat WBC this pm and if improved WBC, consider starting on clear liquids. If CT shows a collection may need surgery or CT-guided drainage by IR
[2017-07-18] MEDS: ATENOLOL 50 MG TABLET (FP) PO SCH (10:01)
[2017-07-18] MEDS: LOSARTAN POTASSIUM 25 MG TABLET PO SCH (10:01)
[2017-07-18] MEDS: PANTOPRAZOLE SODIUM 40 MG VIAL IVPUSH SCH (10:02)
[2017-07-18] MEDS: BUDESONIDE/FORMETEROL FUMARATE 80/4.5 mcg INHALER IH SCH ×2 (10:02→21:18)
[2017-07-18] MEDS: NICOTINE 14 MG/24 HOURS TOPICAL PATCH TD SCH (10:02)
[2017-07-18] MEDS: LACTOBACILLUS ACIDOPHILUS 1 TABLET PO SCH (10:02)
[2017-07-18] MEDS: AMINO ACIDS 4.25%/D5W 1,000 ML IV SCH ×2 (11:30→23:28)
--- NOTE | 2017-07-18 16:39 | PN ---
Progress Note (short form) - Note Progress Note: surgery pt seen and examined. feels well. still requiring narcotics afebrile abd-soft, moderate distension, minimal tenderness wbc 14 ct-multiple small abscesses Plan- IR eval for possible drainage. if unable to would cont abx and rescan in a few days to see if abscess becomes more accessible. Pt is non toxic. keep npo until after procedure.
[2017-07-18] MEDS: MELATONIN 5 MG TABLETS PO SCH (21:17)
[2017-07-18] MEDS: FAT EMULSIONS 500 ML IV SCH (21:18)
[2017-07-18] MEDS: ACETAMINOPHEN 325 MG TABLET (FP) PO PRN (21:19)
[2017-07-18] MEDS ORDERED: PT OWN MED DRAWER 7, Y5N ONE (21:35)
[2017-07-18] MEDS ORDERED: FAT EMULSIONS 20% 500 ML PREMIX INFUS.BAG IV SCH (22:00)
[2017-07-19] MEDS: PIPERACILLIN/TAZOB 3.375 GM 3.375 GM/50 ML BAG IVPB SCH ×3 (01:00→17:46)
[2017-07-19] MEDS: HEPARIN NA (PORCINE) 5,000 UNITS/ML 1ML VIAL SQ SCH ×3 (06:39→21:30)
[2017-07-19 08:58] LABS: ALBUMIN 3.2 g/dl (3.5-5.0); ALK PHOS 46 U/L (32-92); ANION GAP 12 (8-16); BLOOD UREA NITROGEN 17 mg/dl (7-18); CALCIUM 8.4 mg/dl (8.4-10.2); CHLORIDE 97 mmol/L (98-107); CO2 26 mmol/L (22-28); GLUCOSE,RANDOM 105 mg/dl (74-106); MAGNESIUM 1.9 mg/dL (1.8-2.4); POTASSIUM 3.6 mmol/L (3.5-5.1); SGOT/AST 93 U/L (10-42); SGPT/ALT 71 U/L (10-40); SODIUM 135 mmol/L (136-145); TOT PROT 6.5 g/dl (6.4-8.3)
[2017-07-19 09:21] LABS: BILIRUBIN,TOTAL < 0.5 mg/dl (0.2-1.0); CREATININE < 0.8 mg/dl (0.6-1.3)
[2017-07-19] MEDS: ATENOLOL 50 MG TABLET (FP) PO SCH (09:45)
[2017-07-19] MEDS: LACTOBACILLUS ACIDOPHILUS 1 TABLET PO SCH (09:45)
[2017-07-19] MEDS: NICOTINE 14 MG/24 HOURS TOPICAL PATCH TD SCH (09:46)
[2017-07-19] MEDS: LOSARTAN POTASSIUM 25 MG TABLET PO SCH (09:46)
[2017-07-19] MEDS: PANTOPRAZOLE SODIUM 40 MG VIAL IVPUSH SCH (09:46)
[2017-07-19 10:23] LABS: BASO % 0.3 % (0-2.0); EOS % 1.8 % (0-4.5); HEMATOCRIT 42.9 % (35.4-49); LYMPH % 9.3 % (8-40); MCH 33.9 pg (25.7-33.7); MCHC 34.9 g/dl (32.0-35.9); MEAN CELL VOLUME 97.1 fl (80-96); MEAN PLT VOLUME 8.4 fl (7.5-11.1); MONO % 8.3 % (3.8-10.2); NEUT % 80.3 % (42.8-82.8); PLATELET COUNT 332 K/MM3 (134-434); RBC 4.42 M/mm3 (4.00-5.60); RDW 12.6 % (11.9-15.9); WHITE BLOOD COUNT 13.7 K/mm3 (4.0-10.8)
--- NOTE | 2017-07-19 10:30 | PN ---
Physical Exam: SUBJECTIVE: Patient seen and examined, patient is Matt to our nurses station , reports abdominal pain is minimal, reports feeling hungry denies any tactile fevers. OBJECTIVE:Patient is a 61 y/o male with a past medical history of hypertension, patient was admitted from the emergency department for diverticulitis with pneumoperiteneum. Vital Signs Period Temp Pulse Resp BP Sys/Skinner Pulse Ox Last 24 Hr 98.3 F-98.5 F 67-74 16-19 125-132/63-81 97-98 GENERAL: The patient is awake, alert, and fully oriented, in no acute distress. HEAD: Normal with no signs of trauma. EYES: PERRL, extraocular movements intact, sclera anicteric, conjunctiva clear. No ptosis. ENT: Ears normal, nares patent, oropharynx clear without exudates, moist mucous membranes. NECK: Trachea midline, full range of motion, supple. LUNGS: Breath sounds equal, clear to auscultation bilaterally, no wheezes, no crackles, no accessory muscle use. HEART: Regular rate and rhythm, S1, S2 without murmur, rub or gallop. ABDOMEN: Soft, left lower quadrant abdominal tenderness upon deep palpation, nondistended, normoactive bowel sounds, no guarding, no rebound, no hepatosplenomegaly, no masses. EXTREMITIES: 2+ pulses, warm, well-perfused, no edema. NEUROLOGICAL: Cranial nerves II through XII grossly intact. Normal speech, gait not observed. PSYCH: Normal mood, normal affect. SKIN: Warm, dry, normal turgor, no rashes or lesions noted Laboratory Results - last 24 hr 07/19/17 07/19/17 07:15 07:15 WBC 13.7 H RBC 4.42 Hgb 15.0 Hct 42.9 MCV 97.1 H MCH 33.9 H MCHC 34.9 RDW 12.6 Plt Count 332 MPV 8.4 Neutrophils % 80.3 Lymphocytes % 9.3 Monocytes % 8.3 Eosinophils % 1.8 Basophils % 0.3 Sodium 135 L Potassium 3.6 Chloride 97 L Carbon Dioxide 26 Anion Gap 12 BUN 17 Creatinine < 0.8 Creat Clearance w eGFR > 60 Random Glucose 105 Calcium 8.4 Phosphorus 3.0 D Magnesium 1.9 Total Bilirubin < 0.5 D AST 93 H D ALT 71 H D Alkaline Phosphatase 46 Total Protein 6.5 Albumin 3.2 L Active Medications Generic Name Dose Route Start Last Admin Trade Name Freq PRN Reason Stop Dose Admin Acetaminophen 650 mg 07/14/17 13:34 07/18/17 21:19 Tylenol - PO 650 mg Q4H PRN Administration FEVER Albuterol Sulfate 1 amp 07/14/17 11:30 07/16/17 17:39 Ventolin 0.083% Nebulizer Soln - NEB 1 amp Q4H PRN Administration SHORT OF BREATH/WHEEZING Atenolol 50 mg 07/14/17 10:00 07/19/17 09:45 Tenormin - PO 50 mg DAILY RAE Administration Budesonide/Formoterol Fumarate 1 puff 07/13/17 22:15 07/18/17 21:18 Symbicort 80/4.5mcg - IH 1 puff BID RAE Administration Heparin Sodium (Porcine) 5,000 unit 07/17/17 14:00 07/19/17 06:39 Heparin - SQ 5,000 unit TID RAE Administration Metronidazole 500 mg in 100 mls @ 100 mls/hr 07/14/17 02:00 07/19/17 09:46 Flagyl 500mg Premixed Ivpb - IVPB 100 mls/hr Q8H-IV RAE Administration Piperacillin Sod/Tazobactam Sod 3.375 gm in 50 mls @ 100 mls/hr 07/17/17 10: 59 07/19/17 09:46 Zosyn 3.375gm Ivpb (Pre-Docked) IVPB 100 mls/hr Q8H-IV RAE Administration Protocol Amino Acids 1,000 mls @ 84 mls/hr 07/17/17 11:15 07/18/17 23:28 Clinimix - IV 84 mls/hr Q12H RAE Administration Fat Emulsion Intravenous 500 mls @ 41.667 mls/hr 07/18/17 22:00 07/18/17 21: 18 Intralipid - IV 41.667 mls/hr DAILY@2200 RAE Administration Lactobacillus Acidophilus 1 tab 07/14/17 14:27 07/19/17 09:45 Bacid - PO 1 tab DAILY RAE Administration Losartan Potassium 25 mg 07/14/17 10:00 07/19/17 09:46 Cozaar - PO 25 mg DAILY RAE Administration Melatonin 10 mg 07/18/17 22:00 07/18/17 21:17 Melatonin PO 10 mg HS RAE Administration Morphine Sulfate 4 mg 07/17/17 10:42 07/17/17 21:15 Morphine Sulfate IVPUSH 4 mg Q4H PRN Administration PAIN LEVEL 7 - 10 Nicotine 14 mg 07/14/17 12:30 07/19/17 09:46 Nicoderm Patch - TD 14 mg DAILY RAE Administration Pantoprazole Sodium 40 mg 07/18/17 10:00 07/19/17 09:46 Protonix Iv IVPUSH 40 mg DAILY RAE Administration Microbiology 07/13/17 22:51 Blood - Peripheral Venous Blood Culture - Final NO GROWTH AFTER 5 DAYS INCUBATION 07/13/17 22:51 Blood - Peripheral Venous Blood Culture - Final NO GROWTH AFTER 5 DAYS INCUBATION imaging CTAP with pneumoperitoneum, findings consistent with acute diverticulitis without abscess formation CT abdomen and pelvis with IV and oral contrast (07/18/2017):perforated sigmoid diverticulitis with multiple abscesses ASSESSMENT/PLAN: ) Acute diverticulitis with perforation - WBC down trending, CT scan of abdomen and pelvis completedon July 18 was reviewed with general surgeon, Dr. Schroeder and Dr Desai, abscesses are non- drainable at this time, will continue IV antibiotics and start clear liquid diet. - Continue Zosyn and Flagyl - Appreciate GI consult: colonoscopy in 2-3 months - Appreciate surgery consult: patient continues to refuse any surgical intervention at this time, clear liquid diet 2) HTN - On Cozaar and Atenolol 3) Daily cigarette smoker - Continue nicotine patch 4) F/E/N: - continue Clinimix - clear liquid diet - Hyponatremia: continue to monitor 5) Prophylaxis: - Protonix 40mg IVP daily - SCDs bilaterally - Heparin 5,000u sq tid 6) Dispo: - Requires continued inpatient care CODE STATUS: FULL CODE Visit type - Emergency Visit Emergency Visit: Yes ED Registration Date: 07/13/17 Care time: The patient presented to the Emergency Department on the above date and was hospitalized for further evaluation of their emergent condition. - New Patient This patient is new to me today: No - Critical Care Critical Care patient: No - Discharge Referral Referred to [facility] No
--- NOTE | 2017-07-19 10:33 | PN ---
Progress Note (short form) - Note Progress Note: surgery no drainable collection on Ct. wbc slightly better today. would try clear liquids. repeat ct Tuesday to see if collection evolves into something drainable or significantly improves.
--- NOTE | 2017-07-19 11:09 | PN ---
Progress Note, Physician History of Present Illness: Awake, alert OOB in chair Appears comfortable C/O mild soreness below umbilicus No N/V Passing flatus Last BM two days ago Afebrile Blood c/s negative - Current Medication List Current Medications: Active Medications Acetaminophen (Tylenol -) 650 mg PO Q4H PRN PRN Reason: FEVER Last Admin: 07/18/17 21:19 Dose: 650 mg Albuterol Sulfate (Ventolin 0.083% Nebulizer Soln -) 1 amp NEB Q4H PRN PRN Reason: SHORT OF BREATH/WHEEZING Last Admin: 07/16/17 17:39 Dose: 1 amp Atenolol (Tenormin -) 50 mg PO DAILY [facility] Last Admin: 07/19/17 09:45 Dose: 50 mg Budesonide/Formoterol Fumarate (Symbicort 80/4.5mcg -) 1 puff IH BID [facility] Last Admin: 07/18/17 21:18 Dose: 1 puff Heparin Sodium (Porcine) (Heparin -) 5,000 unit SQ TID [facility] Last Admin: 07/19/17 06:39 Dose: 5,000 unit Metronidazole (Flagyl 500mg Premixed Ivpb -) 500 mg in 100 mls @ 100 mls/hr IVPB Q8H-IV [facility] Last Admin: 07/19/17 09:46 Dose: 100 mls/hr Piperacillin Sod/Tazobactam Sod (Zosyn 3.375gm Ivpb (Pre-Docked)) 3.375 gm in 50 mls @ 100 mls/hr IVPB Q8H-IV RAE PRN Reason: Protocol Last Admin: 07/19/17 09:46 Dose: 100 mls/hr Amino Acids (Clinimix -) 1,000 mls @ 84 mls/hr IV Q12H [facility] Last Admin: 07/18/17 23:28 Dose: 84 mls/hr Fat Emulsion Intravenous (Intralipid -) 500 mls @ 41.667 mls/hr IV DAILY@2200 [facility] Last Admin: 07/18/17 21:18 Dose: 41.667 mls/hr Lactobacillus Acidophilus (Bacid -) 1 tab PO DAILY [facility] Last Admin: 07/19/17 09:45 Dose: 1 tab Losartan Potassium (Cozaar -) 25 mg PO DAILY [facility] Last Admin: 07/19/17 09:46 Dose: 25 mg Melatonin (Melatonin) 10 mg PO HS [facility] Last Admin: 07/18/17 21:17 Dose: 10 mg Morphine Sulfate (Morphine Sulfate) 4 mg IVPUSH Q4H PRN PRN Reason: PAIN LEVEL 7 - 10 Last Admin: 07/17/17 21:15 Dose: 4 mg Nicotine (Nicoderm Patch -) 14 mg TD DAILY [facility] Last Admin: 07/19/17 09:46 Dose: 14 mg Pantoprazole Sodium (Protonix Iv) 40 mg IVPUSH DAILY [facility] Last Admin: 07/19/17 09:46 Dose: 40 mg - Objective Vital Signs: Vital Signs Temperature 98.5 F 07/19/17 02:00 Pulse Rate 68 07/19/17 02:00 Respiratory Rate 19 07/19/17 02:00 Blood Pressure 125/63 07/19/17 02:00 O2 Sat by Pulse Oximetry (%) 97 07/19/17 06:08 Constitutional: Yes: No Distress Eyes: Yes: Conjunctiva Clear Cardiovascular: Yes: Regular Rate and Rhythm, S1, S2 Respiratory: Yes: CTA Bilaterally Gastrointestinal: Yes: Normal Bowel Sounds, Soft, Tenderness, Other (mild tenderness to deep palpation below umbilicus) Edema: No Labs: CBC, BMP 07/19/17 07:15 07/19/17 07:15 INR, PTT INR 1.24 (0.82-1.09) H 07/13/17 16:42 Assessment/Plan Acute complicated sigmoid diverticulitis + diverticular abscesses Leukocytosis CT reviewed with radiologist Small abscesses not accessable to percutaneous drainage Continue empiric zosyn/ flagyl GI/ Surgical followup
[2017-07-19] MEDS: AMINO ACIDS 4.25%/D5W 1,000 ML IV SCH ×2 (12:05→22:52)
[2017-07-19] MEDS: BUDESONIDE/FORMETEROL FUMARATE 80/4.5 mcg INHALER IH SCH ×2 (12:05→21:30)
[2017-07-19] MEDS: MELATONIN 5 MG TABLETS PO SCH (22:52)
[2017-07-19] MEDS: FAT EMULSIONS 500 ML IV SCH (22:53)
[2017-07-20] MEDS: PIPERACILLIN/TAZOB 3.375 GM 3.375 GM/50 ML BAG IVPB SCH ×3 (01:36→18:36)
[2017-07-20] MEDS: HEPARIN NA (PORCINE) 5,000 UNITS/ML 1ML VIAL SQ SCH ×3 (06:38→21:24)
--- NOTE | 2017-07-20 08:24 | PN ---
Physical Exam: SUBJECTIVE: Patient seen and examined, ambulatory at bedside, denies any abdominal pain OBJECTIVE: Patient is a 61 y/o male with a past medical history of hypertension , patient was admitted from the emergency department for diverticulitis with pneumoperiteneum. Vital Signs Period Temp Pulse Resp BP Sys/Skinner Pulse Ox Last 24 Hr 98.4 F-98.6 F 55-60 18-18 120-126/64-65 98-100 GENERAL: The patient is awake, alert, and fully oriented, in no acute distress. HEAD: Normal with no signs of trauma. EYES: PERRL, extraocular movements intact, sclera anicteric, conjunctiva clear. No ptosis. ENT: Ears normal, nares patent, oropharynx clear without exudates, moist mucous membranes. NECK: Trachea midline, full range of motion, supple. LUNGS: Breath sounds equal, clear to auscultation bilaterally, no wheezes, no crackles, no accessory muscle use. HEART: Regular rate and rhythm, S1, S2 without murmur, rub or gallop. ABDOMEN: Soft, nontender, nondistended, normoactive bowel sounds, no guarding, no rebound, no hepatosplenomegaly, no masses. EXTREMITIES: 2+ pulses, warm, well-perfused, no edema. NEUROLOGICAL: Cranial nerves II through XII grossly intact. Normal speech, gait not observed. PSYCH: Normal mood, normal affect. SKIN: Warm, dry, normal turgor, no rashes or lesions noted Laboratory Results - last 24 hr 07/19/17 07/19/17 07:15 07:15 WBC 13.7 H RBC 4.42 Hgb 15.0 Hct 42.9 MCV 97.1 H MCH 33.9 H MCHC 34.9 RDW 12.6 Plt Count 332 MPV 8.4 Neutrophils % 80.3 Lymphocytes % 9.3 Monocytes % 8.3 Eosinophils % 1.8 Basophils % 0.3 Sodium 135 L Potassium 3.6 Chloride 97 L Carbon Dioxide 26 Anion Gap 12 BUN 17 Creatinine < 0.8 Creat Clearance w eGFR > 60 Random Glucose 105 Calcium 8.4 Phosphorus 3.0 D Magnesium 1.9 Total Bilirubin < 0.5 D AST 93 H D ALT 71 H D Alkaline Phosphatase 46 Total Protein 6.5 Albumin 3.2 L Active Medications Generic Name Dose Route Start Last Admin Trade Name Freq PRN Reason Stop Dose Admin Acetaminophen 650 mg 07/14/17 13:34 07/18/17 21:19 Tylenol - PO 650 mg Q4H PRN Administration FEVER Albuterol Sulfate 1 amp 07/14/17 11:30 07/16/17 17:39 Ventolin 0.083% Nebulizer Soln - NEB 1 amp Q4H PRN Administration SHORT OF BREATH/WHEEZING Atenolol 50 mg 07/14/17 10:00 07/19/17 09:45 Tenormin - PO 50 mg DAILY RAE Administration Budesonide/Formoterol Fumarate 1 puff 07/13/17 22:15 07/19/17 21:30 Symbicort 80/4.5mcg - IH 1 puff BID RAE Administration Heparin Sodium (Porcine) 5,000 unit 07/17/17 14:00 07/20/17 06:38 Heparin - SQ 5,000 unit TID RAE Administration Metronidazole 500 mg in 100 mls @ 100 mls/hr 07/14/17 02:00 07/20/17 01:36 Flagyl 500mg Premixed Ivpb - IVPB 100 mls/hr Q8H-IV RAE Administration Piperacillin Sod/Tazobactam Sod 3.375 gm in 50 mls @ 100 mls/hr 07/17/17 10: 59 07/20/17 01:36 Zosyn 3.375gm Ivpb (Pre-Docked) IVPB 100 mls/hr Q8H-IV RAE Administration Protocol Amino Acids 1,000 mls @ 84 mls/hr 07/17/17 11:15 07/19/17 22:52 Clinimix - IV 84 mls/hr Q12H RAE Administration Fat Emulsion Intravenous 500 mls @ 41.667 mls/hr 07/18/17 22:00 07/19/17 22: 53 Intralipid - IV 41.667 mls/hr DAILY@2200 RAE Administration Lactobacillus Acidophilus 1 tab 07/14/17 14:27 07/19/17 09:45 Bacid - PO 1 tab DAILY RAE Administration Losartan Potassium 25 mg 07/14/17 10:00 07/19/17 09:46 Cozaar - PO 25 mg DAILY RAE Administration Melatonin 10 mg 07/18/17 22:00 07/19/17 22:52 Melatonin PO 10 mg HS RAE Administration Morphine Sulfate 4 mg 07/17/17 10:42 07/17/17 21:15 Morphine Sulfate IVPUSH 4 mg Q4H PRN Administration PAIN LEVEL 7 - 10 Nicotine 14 mg 07/14/17 12:30 07/19/17 09:46 Nicoderm Patch - TD 14 mg DAILY RAE Administration Pantoprazole Sodium 40 mg 07/18/17 10:00 07/19/17 09:46 Protonix Iv IVPUSH 40 mg DAILY RAE Administration Microbiology 07/13/17 22:51 Blood - Peripheral Venous Blood Culture - Final NO GROWTH AFTER 5 DAYS INCUBATION 07/13/17 22:51 Blood - Peripheral Venous Blood Culture - Final NO GROWTH AFTER 5 DAYS INCUBATION imaging CTAP with pneumoperitoneum, findings consistent with acute diverticulitis without abscess formation CT abdomen and pelvis with IV and oral contrast (07/18/2017):perforated sigmoid diverticulitis with multiple abscesses ASSESSMENT/PLAN: ) Acute diverticulitis with perforation - WBC stable, advance to low fiber diet. . - Continue Zosyn and Flagyl - Appreciate GI consult: colonoscopy in 2-3 months - Appreciate surgery consult: patient continues to refuse any surgical intervention at this time. 2) HTN - On Cozaar and Atenolol 3) Daily cigarette smoker - Continue nicotine patch 4) F/E/N: - low fiber diet - Hyponatremia: continue to monitor 5) Prophylaxis: - Protonix 40mg IVP daily - SCDs bilaterally - Heparin 5,000u sq tid 6) Dispo: - Requires continued inpatient care CODE STATUS: FULL CODE Visit type - Emergency Visit Emergency Visit: Yes ED Registration Date: 07/13/17 Care time: The patient presented to the Emergency Department on the above date and was hospitalized for further evaluation of their emergent condition. - New Patient This patient is new to me today: No - Critical Care Critical Care patient: No - Discharge Referral Referred to [facility] Med P.C[facility] No
[2017-07-20 09:25] LABS: BASO % 1.9 % (0-2.0); EOS % 3.3 % (0-4.5); HEMATOCRIT 40.4 % (35.4-49); HEMOGLOBIN 13.7 GM/dl (11.7-16.9); LYMPH % 9.9 % (8-40); MCH 32.7 pg (25.7-33.7); MCHC 33.8 g/dl (32.0-35.9); MEAN CELL VOLUME 96.7 fl (80-96); MEAN PLT VOLUME 8.4 fl (7.5-11.1); MONO % 10.1 % (3.8-10.2); NEUT % 74.8 % (42.8-82.8); PLATELET COUNT 312 K/MM3 (134-434); RBC 4.18 M/mm3 (4.00-5.60); RDW 12.6 % (11.9-15.9); WHITE BLOOD COUNT 13.4 K/mm3 (4.0-10.8)
[2017-07-20 09:48] LABS: ANION GAP 8 (8-16); BLOOD UREA NITROGEN 15 mg/dl (7-18); CALCIUM 8.2 mg/dl (8.4-10.2); CHLORIDE 99 mmol/L (98-107); CO2 24 mmol/L (22-28); GLUCOSE,RANDOM 131 mg/dl (74-106); MAGNESIUM 1.9 mg/dL (1.8-2.4); PHOSPHOROUS 2.8 mg/dl (2.5-4.6); POTASSIUM 3.7 mmol/L (3.5-5.1); SODIUM 131 mmol/L (136-145)
[2017-07-20 09:50] LABS: CREATININE < 0.8 mg/dl (0.6-1.3)
[2017-07-20] MEDS: LOSARTAN POTASSIUM 25 MG TABLET PO SCH (09:51)
[2017-07-20] MEDS: ATENOLOL 50 MG TABLET (FP) PO SCH (09:51)
[2017-07-20] MEDS: LACTOBACILLUS ACIDOPHILUS 1 TABLET PO SCH (09:51)
--- NOTE | 2017-07-20 09:58 | PN ---
Progress Note, Physician History of Present Illness: Awake, alert Seated in bed Appears comfortable No c/o abdominal pain No N/V Toleartaing liquid diet Passing flatus Afebrile WBC remains elevated Blood c/s negative - Current Medication List Current Medications: Active Medications Acetaminophen (Tylenol -) 650 mg PO Q4H PRN PRN Reason: FEVER Last Admin: 07/18/17 21:19 Dose: 650 mg Albuterol Sulfate (Ventolin 0.083% Nebulizer Soln -) 1 amp NEB Q4H PRN PRN Reason: SHORT OF BREATH/WHEEZING Last Admin: 07/16/17 17:39 Dose: 1 amp Atenolol (Tenormin -) 50 mg PO DAILY [facility] Last Admin: 07/20/17 09:51 Dose: 50 mg Budesonide/Formoterol Fumarate (Symbicort 80/4.5mcg -) 1 puff IH BID RAE Last Admin: 07/19/17 21:30 Dose: 1 puff Heparin Sodium (Porcine) (Heparin -) 5,000 unit SQ TID RAE Last Admin: 07/20/17 06:38 Dose: 5,000 unit Metronidazole (Flagyl 500mg Premixed Ivpb -) 500 mg in 100 mls @ 100 mls/hr IVPB Q8H-IV RAE Last Admin: 07/20/17 09:51 Dose: 100 mls/hr Piperacillin Sod/Tazobactam Sod (Zosyn 3.375gm Ivpb (Pre-Docked)) 3.375 gm in 50 mls @ 100 mls/hr IVPB Q8H-IV RAE; Protocol Last Admin: 07/20/17 09:51 Dose: 100 mls/hr Lactobacillus Acidophilus (Bacid -) 1 tab PO DAILY [facility] Last Admin: 07/20/17 09:51 Dose: 1 tab Losartan Potassium (Cozaar -) 25 mg PO DAILY [facility] Last Admin: 07/20/17 09:51 Dose: 25 mg Melatonin (Melatonin) 10 mg PO HS [facility] Last Admin: 07/19/17 22:52 Dose: 10 mg Morphine Sulfate (Morphine Sulfate) 4 mg IVPUSH Q4H PRN PRN Reason: PAIN LEVEL 7 - 10 Last Admin: 07/17/17 21:15 Dose: 4 mg Nicotine (Nicoderm Patch -) 14 mg TD DAILY [facility] Last Admin: 07/19/17 09:46 Dose: 14 mg Pantoprazole Sodium (Protonix Iv) 40 mg IVPUSH DAILY RAE Last Admin: 07/19/17 09:46 Dose: 40 mg - Objective Vital Signs: Vital Signs Temperature 98.4 F 07/19/17 20:00 Pulse Rate 60 07/19/17 20:00 Respiratory Rate 18 07/19/17 20:49 Blood Pressure 120/64 07/19/17 20:00 O2 Sat by Pulse Oximetry (%) 98 07/19/17 20:49 Constitutional: Yes: No Distress Eyes: Yes: Conjunctiva Clear Cardiovascular: Yes: Regular Rate and Rhythm, S1, S2 Respiratory: Yes: CTA Bilaterally Gastrointestinal: Yes: Normal Bowel Sounds, Soft. No: Tenderness Edema: No Labs: CBC, BMP 07/20/17 07:45 07/20/17 07:45 INR, PTT INR 1.24 (0.82-1.09) H 07/13/17 16:42 Assessment/Plan Acute complicated sigmoid diverticulitis + diverticular abscesses Leukocytosis CT reviewed with radiologist Small abscesses not accessable to percutaneous drainage Continue empiric zosyn/ flagyl GI/ Surgical followup
[2017-07-20] MEDS: BUDESONIDE/FORMETEROL FUMARATE 80/4.5 mcg INHALER IH SCH ×2 (10:00→21:35)
[2017-07-20] MEDS ORDERED: PICC LINE 8 ML FLUSH PROTOCOL IVPUSH PRN (11:11)
--- NOTE | 2017-07-20 13:29 | PN ---
Progress Note (short form) - Note Progress Note: surgery pt seen and examined. feels well. no pain. tolerating diet afebrile abd- soft, nt Laboratory Tests 07/20/17 07:45 WBC 13.4 H Plan- advance to low fiber diet. cont iv abx. would repeat ct Tuesday if wbc not improved. poss drainage vs d/c home Tuesday on po vs iv abx. Pt wishes to avoid surgery because he does not want a colostomy.
[2017-07-20] MEDS: NICOTINE 14 MG/24 HOURS TOPICAL PATCH TD SCH (15:06)
[2017-07-20] MEDS: FAMOTIDINE 20 MG TABLET PO SCH (21:24)
[2017-07-20] MEDS: MELATONIN 5 MG TABLETS PO SCH (21:28)
[2017-07-21] MEDS: PIPERACILLIN/TAZOB 3.375 GM 3.375 GM/50 ML BAG IVPB SCH ×3 (01:29→19:00)
[2017-07-21] MEDS: HEPARIN NA (PORCINE) 5,000 UNITS/ML 1ML VIAL SQ SCH ×3 (07:40→22:46)
[2017-07-21] MEDS: FAMOTIDINE 20 MG TABLET PO SCH ×2 (12:00→22:46)
[2017-07-21] MEDS: LOSARTAN POTASSIUM 25 MG TABLET PO SCH (12:00)
[2017-07-21] MEDS: ATENOLOL 50 MG TABLET (FP) PO SCH (12:00)
[2017-07-21] MEDS: BUDESONIDE/FORMETEROL FUMARATE 80/4.5 mcg INHALER IH SCH ×2 (12:00→22:08)
[2017-07-21] MEDS: LACTOBACILLUS ACIDOPHILUS 1 TABLET PO SCH (12:00)
[2017-07-21 14:20] VITALS: BMI 26.4
--- NOTE | 2017-07-21 15:42 | PN ---
Physical Exam: SUBJECTIVE: Patient seen and examined, ambulatory throughout nursing station, denies any abdominal pain, tolerating diet, patient returned from IR for PICC line insertion OBJECTIVE: Patient is a 61 y/o male with a past medical history of hypertension , patient was admitted from the emergency department for diverticulitis with pneumoperiteneum Vital Signs Period Temp Pulse Resp BP Sys/Skinner Pulse Ox Last 24 Hr 97.6 F-98.4 F 59-79 16-18 124-140/61-64 97-98 GENERAL: The patient is awake, alert, and fully oriented, in no acute distress. HEAD: Normal with no signs of trauma. EYES: PERRL, extraocular movements intact, sclera anicteric, conjunctiva clear. No ptosis. ENT: Ears normal, nares patent, oropharynx clear without exudates, moist mucous membranes. NECK: Trachea midline, full range of motion, supple. LUNGS: Breath sounds equal, clear to auscultation bilaterally, no wheezes, no crackles, no accessory muscle use. HEART: Regular rate and rhythm, S1, S2 without murmur, rub or gallop. ABDOMEN: Soft, nontender, nondistended, normoactive bowel sounds, no guarding, no rebound, no hepatosplenomegaly, no masses. EXTREMITIES: 2+ pulses, warm, well-perfused, no edema. NEUROLOGICAL: Cranial nerves II through XII grossly intact. Normal speech, gait not observed. PSYCH: Normal mood, normal affect. SKIN: Warm, dry, normal turgor, no rashes or lesions noted Active Medications Generic Name Dose Route Start Last Admin Trade Name Freq PRN Reason Stop Dose Admin Acetaminophen 650 mg 07/14/17 13:34 07/18/17 21:19 Tylenol - PO 650 mg Q4H PRN Administration FEVER Albuterol Sulfate 1 amp 07/14/17 11:30 07/16/17 17:39 Ventolin 0.083% Nebulizer Soln - NEB 1 amp Q4H PRN Administration SHORT OF BREATH/WHEEZING Atenolol 50 mg 07/14/17 10:00 07/20/17 09:51 Tenormin - PO 50 mg DAILY RAE Administration Budesonide/Formoterol Fumarate 1 puff 07/13/17 22:15 07/20/17 21:35 Symbicort 80/4.5mcg - IH 1 puff BID RAE Administration Famotidine 20 mg 07/20/17 22:00 07/20/17 21:24 Pepcid - PO 20 mg BID RAE Administration Heparin Sodium (Porcine) 5,000 unit 07/17/17 14:00 07/21/17 07:40 Heparin - SQ Not Given TID RAE IV Flush 8 ml 07/20/17 11:11 Picc Line Flush IVPUSH PRN PRN Protocol Metronidazole 500 mg in 100 mls @ 100 mls/hr 07/14/17 02:00 07/21/17 02:19 Flagyl 500mg Premixed Ivpb - IVPB 100 mls/hr Q8H-IV RAE Administration Piperacillin Sod/Tazobactam Sod 3.375 gm in 50 mls @ 100 mls/hr 07/17/17 10: 59 07/21/17 01:29 Zosyn 3.375gm Ivpb (Pre-Docked) IVPB 100 mls/hr Q8H-IV RAE Administration Protocol Lactobacillus Acidophilus 1 tab 07/14/17 14:27 07/20/17 09:51 Bacid - PO 1 tab DAILY RAE Administration Losartan Potassium 25 mg 07/14/17 10:00 07/20/17 09:51 Cozaar - PO 25 mg DAILY RAE Administration Melatonin 10 mg 07/18/17 22:00 07/20/17 21:28 Melatonin PO 10 mg HS RAE Administration Nicotine 14 mg 07/14/17 12:30 07/20/17 15:06 Nicoderm Patch - TD Not Given DAILY RAE Microbiology 07/13/17 22:51 Blood - Peripheral Venous Blood Culture - Final NO GROWTH AFTER 5 DAYS INCUBATION 07/13/17 22:51 Blood - Peripheral Venous Blood Culture - Final NO GROWTH AFTER 5 DAYS INCUBATION imaging CTAP with pneumoperitoneum, findings consistent with acute diverticulitis without abscess formation CT abdomen and pelvis with IV and oral contrast (07/18/2017):perforated sigmoid diverticulitis with multiple abscesses ASSESSMENT/PLAN: ) Acute diverticulitis with perforation - WBC stable, patient is afebrile continue low fiber diet. . - Continue Zosyn and Flagyl - Appreciate GI consult: colonoscopy in 2-3 months - Appreciate surgery consult: patient continues to refuse any surgical intervention at this time. - repeat ct scan tommorow 2) HTN - On Cozaar and Atenolol 3) Daily cigarette smoker - Continue nicotine patch 4) F/E/N: - low fiber diet - Hyponatremia: continue to monitor 5) Prophylaxis: - Pepcid - SCDs bilaterally - Heparin 5,000u sq tid 6) Dispo: - Requires continued inpatient care CODE STATUS: FULL CODE Visit type - Emergency Visit Emergency Visit: Yes ED Registration Date: 07/13/17 Care time: The patient presented to the Emergency Department on the above date and was hospitalized for further evaluation of their emergent condition. - New Patient This patient is new to me today: No - Critical Care Critical Care patient: No - Discharge Referral Referred to [facility] Med P.C.: No
[2017-07-21 16:53] LABS: BASO % 0.8 % (0-2.0); EOS % 2.5 % (0-4.5); HEMATOCRIT 41.3 % (35.4-49); HEMOGLOBIN 13.8 GM/dl (11.7-16.9); LYMPH % 13.8 % (8-40); MCH 31.8 pg (25.7-33.7); MCHC 33.4 g/dl (32.0-35.9); MEAN CELL VOLUME 95.3 fl (80-96); MEAN PLT VOLUME 8.1 fl (7.5-11.1); MONO % 9.4 % (3.8-10.2); NEUT % 73.5 % (42.8-82.8); PLATELET COUNT 367 K/MM3 (134-434); RBC 4.33 M/mm3 (4.00-5.60); RDW 12.2 % (11.9-15.9); WHITE BLOOD COUNT 12.6 K/mm3 (4.0-10.8)
[2017-07-21 19:14] LABS: ANION GAP 9 (8-16); BLOOD UREA NITROGEN 14 mg/dl (7-18); CALCIUM 8.3 mg/dl (8.4-10.2); CHLORIDE 100 mmol/L (98-107); CO2 24 mmol/L (22-28); CREATININE 0.8 mg/dl (0.6-1.3); GLUCOSE,RANDOM 122 mg/dl (74-106); MAGNESIUM 1.9 mg/dL (1.8-2.4); PHOSPHOROUS 3.2 mg/dl (2.5-4.6); POTASSIUM 3.6 mmol/L (3.5-5.1); SODIUM 133 mmol/L (136-145)
[2017-07-21] MEDS: MELATONIN 5 MG TABLETS PO SCH (22:46)
[2017-07-22] MEDS: PIPERACILLIN/TAZOB 3.375 GM 3.375 GM/50 ML BAG IVPB SCH ×2 (01:10→10:06)
[2017-07-22] MEDS: HEPARIN NA (PORCINE) 5,000 UNITS/ML 1ML VIAL SQ SCH (05:33)
[2017-07-22 06:40] VITALS: BP 148/82; PULSE 71; TEMP 97.9
--- NOTE | 2017-07-22 09:55 | PN ---
Progress Note, Physician History of Present Illness: Awake, alert No c/o abdominal pain No N/V Tolerating diet Reports normal BMs Afebrile WBC remains slightly elevated Blood c/s negative - Current Medication List Current Medications: Active Medications Acetaminophen (Tylenol -) 650 mg PO Q4H PRN PRN Reason: FEVER Last Admin: 07/18/17 21:19 Dose: 650 mg Albuterol Sulfate (Ventolin 0.083% Nebulizer Soln -) 1 amp NEB Q4H PRN PRN Reason: SHORT OF BREATH/WHEEZING Last Admin: 07/16/17 17:39 Dose: 1 amp Atenolol (Tenormin -) 50 mg PO DAILY [facility] Last Admin: 07/21/17 12:00 Dose: 50 mg Budesonide/Formoterol Fumarate (Symbicort 80/4.5mcg -) 1 puff IH BID [facility] Last Admin: 07/21/17 22:08 Dose: 1 puff Famotidine (Pepcid -) 20 mg PO BID [facility] Last Admin: 07/21/17 22:46 Dose: 20 mg Heparin Sodium (Porcine) (Heparin -) 5,000 unit SQ TID [facility] Last Admin: 07/22/17 05:33 Dose: 5,000 unit IV Flush (Picc Line Flush) 8 ml IVPUSH PRN PRN PRN Reason: Protocol Metronidazole (Flagyl 500mg Premixed Ivpb -) 500 mg in 100 mls @ 100 mls/hr IVPB Q8H-IV [facility] Last Admin: 07/22/17 02:10 Dose: 100 mls/hr Piperacillin Sod/Tazobactam Sod (Zosyn 3.375gm Ivpb (Pre-Docked)) 3.375 gm in 50 mls @ 100 mls/hr IVPB Q8H-IV RAE; Protocol Last Admin: 07/22/17 01:10 Dose: 100 mls/hr Lactobacillus Acidophilus (Bacid -) 1 tab PO DAILY [facility] Last Admin: 07/21/17 12:00 Dose: 1 tab Losartan Potassium (Cozaar -) 25 mg PO DAILY [facility] Last Admin: 07/21/17 12:00 Dose: 25 mg Melatonin (Melatonin) 10 mg PO HS [facility] Last Admin: 07/21/17 22:46 Dose: 10 mg Nicotine (Nicoderm Patch -) 14 mg TD DAILY [facility] Last Admin: 07/20/17 15:06 Dose: Not Given - Objective Vital Signs: Vital Signs Temperature 97.9 F 07/22/17 06:38 Pulse Rate 71 07/22/17 06:38 Respiratory Rate 20 07/22/17 06:38 Blood Pressure 148/82 07/22/17 06:38 O2 Sat by Pulse Oximetry (%) 96 07/22/17 06:38 Constitutional: Yes: No Distress Cardiovascular: Yes: Regular Rate and Rhythm, S1, S2 Respiratory: Yes: CTA Bilaterally Gastrointestinal: Yes: Normal Bowel Sounds, Soft. No: Tenderness Edema: No Labs: CBC, BMP 07/21/17 16:35 07/21/17 16:35 INR, PTT INR 1.24 (0.82-1.09) H 07/13/17 16:42 Assessment/Plan Acute complicated sigmoid diverticulitis clinically improved + diverticular abscesses Leukocytosis Follow up CT recommended by surgery If no worse or unchanged, substitute ceftriaxone 2gm IVPB qd + flagyl 500mg po q8h x 10d as outpatient
[2017-07-22] MEDS: ATENOLOL 50 MG TABLET (FP) PO SCH (10:06)
[2017-07-22] MEDS: FAMOTIDINE 20 MG TABLET PO SCH (10:06)
[2017-07-22] MEDS: BUDESONIDE/FORMETEROL FUMARATE 80/4.5 mcg INHALER IH SCH (10:06)
[2017-07-22] MEDS: LOSARTAN POTASSIUM 25 MG TABLET PO SCH (10:06)
[2017-07-22] MEDS: LACTOBACILLUS ACIDOPHILUS 1 TABLET PO SCH (10:06)
[2017-07-22] MEDS: NICOTINE 14 MG/24 HOURS TOPICAL PATCH TD SCH (10:06)
--- NOTE | 2017-07-22 11:09 | DS ---
Physical Exam: SUBJECTIVE: Patient seen and examined, OBJECTIVE:This is a 61 y/o man past medical history of HTN. Who presents to the ED from his PMDs with lower abdominal pain, cramping and multiple BMs. Patient reports having abdominal cramping increased during the day, worse after eating. Patient reports having several BMs formed to soft throughout the day. Patient reports having subjective fever without chills. Patient denies SOB, CP, vomiting , constipation, melena, hematochezia, dysuria. ER course was notable for: (1) CTAP- Pneumoperitoneum. Acute Diverticulitis (2) WBC 15.9, 24 bands (3) T Max 100.8 m Vital Signs Period Temp Pulse Resp BP Sys/Skinner Pulse Ox Last 24 Hr 97.9 F-98.2 F 58-79 18-20 124-148/60-82 95-97 PHYSICAL EXAM GENERAL: The patient is awake, alert, and fully oriented, in no acute distress. HEAD: Normal with no signs of trauma. EYES: PERRL, extraocular movements intact, sclera anicteric, conjunctiva clear. ENT: Ears normal, nares patent, oropharynx clear without exudates, moist mucous membranes. NECK: Trachea midline, full range of motion, supple. LUNGS: Breath sounds equal, clear to auscultation bilaterally, no wheezes, no crackles, no accessory muscle use. HEART: Regular rate and rhythm, S1, S2 without murmur, rub or gallop. ABDOMEN: Soft, nontender, nondistended, normoactive bowel sounds, no guarding, no rebound, no hepatosplenomegaly, no masses. EXTREMITIES: 2+ pulses, warm, well-perfused, no edema. NEUROLOGICAL: Cranial nerves II through XII grossly intact. Normal speech, gait not observed. PSYCH: Normal mood, normal affect. SKIN: Warm, dry, normal turgor, no rashes or lesions noted. LABS Laboratory Results - last 24 hr 07/21/17 07/21/17 16:35 16:35 WBC 12.6 H RBC 4.33 Hgb 13.8 Hct 41.3 MCV 95.3 MCH 31.8 MCHC 33.4 RDW 12.2 Plt Count 367 MPV 8.1 Neutrophils % 73.5 Lymphocytes % 13.8 D Monocytes % 9.4 Eosinophils % 2.5 Basophils % 0.8 Sodium 133 L Potassium 3.6 Chloride 100 Carbon Dioxide 24 Anion Gap 9 BUN 14 Creatinine 0.8 Random Glucose 122 H Calcium 8.3 L Phosphorus 3.2 Magnesium 1.9 Microbiology 07/13/17 22:51 Blood - Peripheral Venous Blood Culture - Final NO GROWTH AFTER 5 DAYS INCUBATION 07/13/17 22:51 Blood - Peripheral Venous Blood Culture - Final NO GROWTH AFTER 5 DAYS INCUBATION HOSPITAL COURSE: Date of Admission:07/13/17 Date of Discharge: 07/22/17 Minutes to complete discharge: 45 Discharge Summary Reason For Visit: DIVERTICULITIS W PERF Current Active Problems DVT prophylaxis (Acute) Diverticulitis of colon with perforation (Acute) HTN (hypertension) (Acute) Leukocytosis (Acute) Condition: Stable - Instructions Diet, Activity, Other Instructions: continue low fiber diet Continue Rocephin and Flagyl daily as prescribed by infectious disease continue all medications as prescribed Please follow up with Dr. Bryant, infectious disease within 2 weeks Please follow off with Dr. Schroeder in general surgery within 2 weeks If any new or persistent symptoms develop please return to emergency department Referrals: Watson Petersen MD [Staff Physician] - 1 Week Felipe Schroeder MD [Staff Physician] - 2 Weeks Disposition: HOME - Home Medications Comprehensive Discharge Medication List: Ambulatory Orders Atenolol [Tenormin -] 50 mg PO DAILY 07/13/17 Budesonide/Formeterol Fumarate [SYMBICORT 80/4.5mcg -] 1 inh PO BID 07/13/17 Irbesartan 0 mg PO DAILY 07/13/17 - Discharge Referral Referred to [id number] Med [facility] No
== END 2017-07-22 12:00 | disposition home or self-care (01) | DRG 392 ==
LOC: FER 16:20 → FM/S 21:29
PROVIDERS: ADMIT Internal Medicine; ATTEND Nurse Practitioner Family
DX: K57.20 Diverticulitis of large intestine with perforation and abscess without bleeding (principal); E87.1 Hypo-osmolality and hyponatremia; F17.210 Nicotine dependence, cigarettes, uncomplicated; I10 Essential (primary) hypertension; J44.9 Chronic obstructive pulmonary disease, unspecified
CPT/HCPCS: 36415; 36569; 71045-TC-FY; 74177-TC; 77001-TC-FY; 80048; 80053; 81003; 81015; 83605; 83735; 84100; 85025; 85610; 87040; 93005; 94010; 94640; 99284-25; C1751; J0131; J1644; J7030; J7620

== ENCOUNTER 2019-11-01 12:07 | Emergency (ER) | payer OTHER ==
[2019-11-01 12:33] VITALS: TEMP 98.5; BMI 27.7
--- NOTE | 2019-11-01 12:48 | PDOC ---
History of Present Illness - General Chief Complaint: Pain, Acute Stated Complaint: RIGHT KIDNEY PAIN Time Seen by Provider: 11/01/19 12:29 History Source: Patient Exam Limitations: No Limitations - History of Present Illness Initial Comments: 11/01/19 12:41 63YOM with h/o HTN (on amlodipine, and candesartan) long-time smoker, perforated diverticulitis in 2018 which was medically managed, and BPH with recent course of abx per his urologist for elevated PSA (patient states resolved) who p/w about 10 days fluctuating right flank pain and constipation, states at this very moment the pain is dull/mild but this morning it got bad enough that he decided he needed ED evaluation even though he had a PCP appointment scheduled for 5pm today. Just started taking MiraLax 2 days ago, on arrival to the ED had a BM and states this did provide some relief of the pain. Never had pain like this before. Denies any PARNELL, lightheadedness, n/t/w focally, leg swelling, abdominal pain, chest pain, new SOB (always has some baseline chronic SOB), hematuria, dysuria, foul/strong odor to urine, rectal bleeding, black or white stool, or any other symptoms. He denies f/c/n/v/c. Past History - Medical History Allergies/Adverse Reactions: Allergies Allergy/AdvReac Type Severity Reaction Status Date / Time No Known Allergies Allergy Verified 11/01/19 12:49 Home Medications: Ambulatory Orders Budesonide/Formeterol Fumarate [SYMBICORT 80/4.5mcg -] 2 inh PO BID 07/13/17 Albuterol Sulfate [Proair Hfa] 8.5 gm IH BID PRN 11/01/19 Amlodipine Besylate [Norvasc -] 5 mg PO HS 11/01/19 Amox-Tr/K Cl [Augmentin - 875Mg Tablet] 1 tab PO BID #20 tablet 11/01/19 Ibuprofen 400 mg PO HS PRN 11/01/19 Tamsulosin HCl [Flomax] 0.4 mg PO DAILY 11/01/19 Telmisartan [Micardis] 80 mg PO HS 11/01/19 COPD: No (?) GI Disorders: Yes (PERFORATED SIGMOID DIVERTICULITIS) Disorders: Yes (BPH) HTN: Yes Kidney Stones: Yes - Psycho-Social/Smoking History Smoking History: Current every day smoker Number of Cigarettes Smoked Daily: 10 Information on smoking cessation initiated: Yes 'Breaking Loose' booklet given: 07/13/17 - Substance Abuse Hx (Audit-C & DAST Scrn) How often the patient has a drink containing alcohol: Never Score: In Men: 4 or > Positive; In Women: 3 or > Positive: 0 Screen Result (Pos requires Nsg. Audit-10AR): Negative In the last yr the pt used illegal drug/Rx for NonMed reason: No Score: Yes response is considered Positive: 0 Screen Result (Positive result requires Nsg. DAST-10): Negative Review of Systems - Review of Systems Able to Perform ROS?: Yes Comments:: 11/01/19 15:20 GEN: no fever, chills, malaise, or generalized weakness HEENT: no ear pain, congestion, sore throat, vision change, or eye pain CV: no chest pain, palpitations, lightheadedness, syncope, or edema RESP: no SOB, wheezing, or cough GI: no abdominal pain, nausea, vomiting, diarrhea, constipation, or rectal bleed : right flank pain, no dysuria, hematuria, or discharge MSK: no muscle weakness or pain, no joint swelling or pain NEURO: no headache, vertigo, numbness, tingling, or focal weakness PSYCH: no SI, HI, or behavior change SKIN: no jaundice, rash, lesions, or unexplained bruises ROS otherwise negative except as noted in HPI *Physical Exam - Vital Signs Last Vital Signs Temp Pulse Resp BP Pulse Ox 98.5 F 103 H 16 138/85 99 11/01/19 12:08 11/01/19 12:08 11/01/19 12:08 11/01/19 12:08 11/01/19 12:08 - Physical Exam 11/01/19 15:21 GENERAL: very well-appearing, extremely pleasant, A/Ox4, no distress, answers questions appropriately HEENT: PERRLA, EOMI, moist mucous membranes NECK/BACK: no midline ttp, no spinal step-off or deformity, no hematoma, full ROM, neck supple CARDIOVASCULAR: regular rate/rhythm, no MGR, strong peripheral pulses, capillary refill <2 seconds, extremities wwp, no edema LUNGS/RESPIRATORY: no respiratory distress, CTAB GI/ABDOMEN: symmetric [id number], normoactive BS, soft, no ttp, no midline pulsatile masses : mild right inferior CVA tenderness, no left CVA tenderness MSK/EXTREMITIES: no muscle atrophy, no acute deformity SKIN: warm and dry, no pallor, no jaundice, no rash, no pathologic-appearing bruising, no skin breakdown, no cuts, no lesions NEUROLOGICAL: GCS 15, CN II-XII grossly intact, 5/5 strength proximally and distally, no facial droop Heart Score/ECG Review #1 11/01/19 12:58 A-fib (new compared with EKG from 2018), ventricular rate of 84, with LBBB (w hich is old compared with EKG from 2018), normal axis, no additional ST-T changes ED Treatment Course - LABORATORY CBC & Chemistry Diagram: 11/01/19 13:00 11/01/19 13:00 - RADIOLOGY Radiology Studies Ordered: Category Date Time Status ABDOMEN & PELVIS CT WITH CONTR [CT] Stat CT Scan 11/01/19 12:40 Ordered CHEST X-RAY PORTABLE* [RAD] Stat Radiology 11/01/19 12:31 Ordered Medical Decision Making - Medical Decision Making 11/01/19 12:48 63YOM with h/o HTN (on amlodipine and candesartan), BPH (on tamsulosin), and long-time smoker who p/w right lower flank pain. Initial Vital Signs Temp Pulse Resp BP Pulse Ox 98.5 F 103 H 16 138/85 99 11/01/19 12:08 11/01/19 12:08 11/01/19 12:08 11/01/19 12:08 11/01/19 12:08 DDX IBNLT: most likely this is renal colic, possible obstructive uropathy, possible arterial thromboembolism causing renal artery embolus or mesenteric ischemic or ischemic colitis, especially given the new onset A-fib, and there is also some concern for AAA because the patient states he has never had an aorta ultrasound or any study to check specifically for aortic aneurysm, less likely AAD. Possible GI pathology such as recurrent diverticulitis, partial SBO, cholecystitis, appendicitis, etc. Unlikely but also considered in this patient are also possible rental artery aneurysm or dissection, or renal vein thrombosis, less likely UTI/pyelonephritis given that he just finished abx course and has no dysuria. Other possibilities are musculoskeletal or constipation or other benign cause but these are diagnoses of exclusion. The patient is in new onset A-fib. States no h/o arrhythmia and there is no indication of prior A-fib in his EMR Provider Orders Category Date Time Status ABDOMEN & PELVIS CT WITH CONTR [CT] Stat CT Scan 11/01/19 12:40 Completed ELECTROCARDIOGRAM [CARD] Stat Cardiology 11/01/19 12:31 Completed Cardiac Monitoring Continuous Care 11/01/19 12:31 Completed EKG needed NOW Care 11/01/19 12:32 Completed CARDIAC PROFILE (ONLY [facility]) Stat Lab 11/01/19 13:00 Completed CBC WITH DIFFERENTIAL Stat Lab 11/01/19 13:00 Completed CK INDEX Stat Lab 11/01/19 13:00 Completed CK MB Stat Lab 11/01/19 13:00 Completed COMP METABOLIC PANEL Stat Lab 11/01/19 13:00 Completed MAGNESIUM Stat Lab 11/01/19 13:00 Completed THYROID STIMULATING HORMONE Stat Lab 11/01/19 13:00 Completed UA ([facility] ONLY) Stat Lab 11/01/19 14:25 Completed Amox-Tr/K Cl [Augmentin - 875Mg Tablet] Medication 11/01/19 15:27 Discontinued 1 tab .ROUTE .STK-MED ONE Amox-Tr/K Cl [Augmentin - 875Mg Tablet] Medication 11/01/19 15:15 Discontinued 1 tab PO ONCE ONE Lactated Ringers Solution Medication 11/01/19 13:41 Discontinued 1,000 ml in 1,000 ml IV ONCE Urine Culture [URINE CULTURE] Stat Micro 11/01/19 14:25 Completed Saline Lock, Insert ONCE Phy Order 11/01/19 12:45 Ordered CHEST X-RAY PORTABLE* [RAD] Stat Radiology 11/01/19 12:31 Completed Medications Discontinued Medications Generic Name Dose Route Start Last Admin Trade Name Freq PRN Reason Stop Dose Admin Amoxicillin/Clavulanate Potassium 1 tab 11/01/19 15:15 11/01/19 15:29 Augmentin - 875mg Tablet PO 11/01/19 15:16 1 tab ONCE ONE Administration Amoxicillin/Clavulanate Potassium Confirm 11/01/19 15:27 Augmentin - 875mg Tablet Administered 11/01/19 15:28 Dose 1 tab .ROUTE .STK-MED ONE Lactated Ringer's 1,000 ml in 1,000 mls @ 1,000 mls/hr 11/01/19 13:41 11/01/19 13:40 Lactated Ringers Solution IV 11/01/19 14:40 1,000 mls/hr ONCE ONE Administration Microbiology Tests 11/01/19 14:25 Urine Culture - Final Urine - Urine Clean Catch NO GROWTH OBTAINED Lab Results WBC 10.0 K/mm3 (4.0-10.8) 11/01/19 13:00 RBC 4.71 M/mm3 (4.00-5.60) 11/01/19 13:00 Hgb 15.7 GM/dl (11.7-16.9) 11/01/19 13:00 Hct 46.5 % (35.4-49) 11/01/19 13:00 MCV 98.8 fl (80-96) H 11/01/19 13:00 MCH 33.3 pg (25.7-33.7) 11/01/19 13:00 MCHC 33.8 g/dl (32.0-35.9) 11/01/19 13:00 RDW 12.1 % (11.9-15.9) 11/01/19 13:00 Plt Count 234 K/MM3 (134-434) D 11/01/19 13:00 MPV 8.5 fl (7.5-11.1) 11/01/19 13:00 Absolute Neuts (auto) 7.6 K/mm3 11/01/19 13:00 Neutrophils % 76.3 % (42.8-82.8) 11/01/19 13:00 Lymphocytes % 13.7 % (8-40) 11/01/19 13:00 Monocytes % 8.1 % (3.8-10.2) 11/01/19 13:00 Eosinophils % 0.8 % (0-4.5) 11/01/19 13:00 Basophils % 1.1 % (0-2.0) 11/01/19 13:00 Sodium 128 mmol/L (136-145) L 11/01/19 13:00 Potassium 3.4 mmol/L (3.5-5.1) L 11/01/19 13:00 Chloride 94 mmol/L (98-107) L 11/01/19 13:00 Carbon Dioxide 22 mmol/L (21-32) 11/01/19 13:00 Anion Gap 12 MMOL/L (8-16) 11/01/19 13:00 BUN 25.0 mg/dl (7-18) H 11/01/19 13:00 Creatinine 0.9 mg/dl (0.55-1.3) 11/01/19 13:00 Est GFR (CKD-EPI)AfAm 103.51 11/01/19 13:00 Est GFR (CKD-EPI)NonAf 89.31 11/01/19 13:00 Random Glucose 113 mg/dl (74-106) H 11/01/19 13:00 Calcium 8.6 mg/dl (8.5-10) 11/01/19 13:00 Magnesium 1.8 mg/dL (1.8-2.4) 11/01/19 13:00 Total Bilirubin 1.0 mg/dl (0.2-1) 11/01/19 13:00 AST 24 U/L (15-37) 11/01/19 13:00 ALT 24 U/L (13-61) 11/01/19 13:00 Alkaline Phosphatase 71 U/L (45-117) 11/01/19 13:00 Creatine Kinase 379 U/L (26-308) H 11/01/19 13:00 Creatine Kinase Index 2.6 % (0.0-5.0) 11/01/19 13:00 CK-MB (CK-2) 10.2 ng/mL (0.5-3.6) H 11/01/19 13:00 Troponin I 0.03 ng/ml (0.00-0.05) 11/01/19 13:00 Total Protein 6.7 g/dl (6.4-8.2) 11/01/19 13:00 Albumin 3.8 g/dl (3.4-5.0) 11/01/19 13:00 TSH 2.48 uIU/ml (0.358-3.74) 11/01/19 13:00 Urine Color Yellow 11/01/19 14:25 Urine Appearance Clear 11/01/19 14:25 Urine pH 6.5 (4.5-8) 11/01/19 14:25 Urine Protein Negative (NEGATIVE) 11/01/19 14:25 Urine Glucose (UA) Negative (NEGATIVE) 09/03/20 14:25 Urine Ketones Negative (NEGATIVE) 11/01/19 14:25 Urine Blood Negative (NEGATIVE) 11/01/19 14:25 Urine Nitrite Negative (NEGATIVE) 11/01/19 14:25 Urine Bilirubin Negative (NEGATIVE) 11/01/19 14:25 Urine Urobilinogen 0.2 (0.2-1.0) 11/01/19 14:25 Ur Leukocyte Esterase Negative (NEGATIVE) 11/01/19 14:25 RAD/CHEST X-RAY PORTABLE* Chest: Flank pain Single view of the chest reveals clear well aerated lungs, sharp angles, normal mediastinum and intact bones and soft tissues. An acute process is not seen. Since 07/13/2017, there is no change of an adverse nature. Impression: No acute chest pathology. CT/ABDOMEN PELVIS CT WITH CONTR Patient Name: YOUNG OLIVAS Accession Number: [id number] :[id number] Gender: Male Procedure: ABDOMEN PELVIS CT WITH CONTR INDICATION: 63 years Male right flank pain TECHNIQUE: CT scan of the abdomen/pelvis was performed from the lung bases through the symphysis pubis. Enteric contrast: Not administered IV contrast: 95 cc Omnipaque COMPARISON: July 18, 2017 FINDINGS/DISCUSSION: Lung bases: Clear. No pleural effusion. Heart: Normal in size. No pericardial effusion. Aorta: Normal caliber. Atherosclerotic calcifications are demonstrated. Esophagus: Unremarkable. Liver: Normal size and contour. No mass. The portal and hepatic veins are patent. No intra-or extrahepatic biliary ductal dilatation. Spleen: Unremarkable. Pancreas: Unremarkable. Gallbladder: Nodular focus of intermediate attenuation identified at the fundus redemonstrated and not significantly changed, suggestive of polyp or adenomyomatosis. Adrenals: Unremarkable. Kidneys: No hydronephrosis. 0.2 cm nonobstructing calculus demonstrated at the lower pole of the right kidney, which was not seen on the prior study. A 0.3 cm nonobstructing calculus is redemonstrated at the right kidney midpole and is not significantly changed. No evidence of left renal calculi. Subcentimeter focus of low attenuation at the left midpole is too small to characterize accurately, but most likely reflects a simple cyst and has not significantly changed. Retroperitoneum: Unremarkable. Peritoneum: No free fluid or air. No lymphadenopathy. Bowel: No evidence of obstruction. Normal appendix. Diverticulosis. Small focus of mild fat s tranding is identified adjacent to the sigmoid colon diverticulum (image 98 of series 1). This findi ng may represent sequela of extensive prior diverticular disease, however mild diverticulitis cannot be excluded in the appropriate clinical context. Pelvis: No free pelvic fluid. No bulky iliac or inguinal adenopathy. Urinary bladder: Unremarkable. Prostate: The prostate is enlarged measuring up to 5.0 cm transverse with internal calcifications and nodular contour indenting on the adjacent bladder. Seminal vesicles: Symmetric. Bones: Generalized osteopenia. Multilevel degenerative disc disease. No lytic or blastic lesions. IMPRESSION: 0.2 cm nonobstructing calculus demonstrated at the lower pole of the right kidney not seen on prior study. Previously noted nonobstructing 0.3 cm calculus is redemonstrated and not significantly changed. Prostatomegaly. Small focus of mild fat stranding identified adjacent to sigmoid colon diverticulum may represent sequela of extensive prior diverticular disease, however current mild diverticulitis cannot be excluded in the appropriate clinical context. The Pts symptoms persist despite ED treatments. The Pt is unsafe for discharge at this time. He requires further hospital observation, workup, and treatment for new-onset A-fib with flank pain. However the patient declines admission to the hospital, states he wants to follow up with Dr. Petersen as scheduled later this afternoon. We have a thorough discussion about the benefits of admission and the risks of leaving, and he chooses to sign out AMA. Medications sent to his pharmacy and he assures me he will take them exactly as prescribed and follow up with Dr. Petersen in a couple of hours as scheduled. He has understanding of his diagnoses including the new-onset A fib and the diverticulitis. Last Vital Signs Temp Pulse Resp BP Pulse Ox 98.5 F 82 15 127/82 97 11/01/19 12:08 11/01/19 14:35 11/01/19 14:35 11/01/19 14:35 11/01/19 14:35 Discharge - Discharge Information Problems reviewed: Yes Clinical Impression/Diagnosis: LBBB (left bundle branch block), Diverticulitis Atrial fibrillation Qualifiers: Atrial fibrillation type: unspecified Qualified Code(s): I48.91 - Unspecified atrial fibrillation Condition: Stable Disposition: AGAINST MEDICAL ADVICE - Admission No - Additional Discharge Information Prescriptions: Amox-Tr/K Cl [Augmentin - 875Mg Tablet] 1 tab PO BID #20 tablet - Follow up/Referral Referrals: Watson Petersen MD [Primary Care Provider] - - Patient Discharge Instructions Additional Instructions: Dear Mr. Olivas (and Dr. Petesren as well), You were seen in the ER this afternoon for right flank pain. We were concerned for a few possible diagnoses like kidney stone and diverticulitis infection of the colon, so we did a CT scan of the abdomen as well as a chest x-ray, an electrocardiogram, and labs on your blood and urine. We did find a mild diverticulitis infection of the sigmoid colon, and we gave you your first dose of antibiotics here in the department and sent the remaining courses to your pharmacy. Please take both of these antibiotics concurrently, exactly as prescibed, and finish them whether or not your symptoms resolve. The other thing that we found on your ER workup was new-onset heart arrhythmia called atrial fibrillation. We recommended admission to the hospital for further workup and treatment (more for the atrial fibrillation than for the diverticulitis). After our discussion on the risks and benefits, you chose to follow up with your primary doctor at 5pm today instead (which is fine - we just make the recommendation and you are free to do exactly what you choose - no hard feelings at all that you signed out of the ER against medical advice). Please do follow up with your primary doctor at 5pm and discuss the atrial fibrillation, the diverticulitis, and all the lab results. If you change your mind about admission to the hospital, we are happy to see you back here. Especially come back to the ER if you have any new or worsening symptoms like fainting, chest pain, shortness of breath, abdominal pain, headache, new vision problems, or new numbness, tingling, or weakness of one side or part of your body. If you would like a recommendation for a roll on man, we are providing the information for a very good and kind one here in these discharge papers. Feel better and have a good afternoon! - Post Discharge Activity
[2019-11-01 13:15] LABS: BASO % 1.1 % (0-2.0); EOS % 0.8 % (0-4.5); HEMATOCRIT 46.5 % (35.4-49); HEMOGLOBIN 15.7 GM/dl (11.7-16.9); LYMPH % 13.7 % (8-40); MCH 33.3 pg (25.7-33.7); MCHC 33.8 g/dl (32.0-35.9); MEAN CELL VOLUME 98.8 fl (80-96); MEAN PLT VOLUME 8.5 fl (7.5-11.1); MONO % 8.1 % (3.8-10.2); NEUT % 76.3 % (42.8-82.8); PLATELET COUNT 234 K/MM3 (134-434); RBC 4.71 M/mm3 (4.00-5.60); RDW 12.1 % (11.9-15.9)
[2019-11-01 13:31] LABS: ALBUMIN 3.8 g/dl (3.4-5.0); CALCIUM 8.6 mg/dl (8.5-10); CREATININE 0.9 mg/dl (0.55-1.3); MAGNESIUM 1.8 mg/dL (1.8-2.4); POTASSIUM 3.4 mmol/L (3.5-5.1); TOT PROT 6.7 g/dl (6.4-8.2)
[2019-11-01] MEDS ORDERED: LACTATED RINGERS SOLUTION 1,000 ML/1,000 ML INFUS.BAG IV ONE (13:41)
[2019-11-01 14:39] VITALS: BP 127/82; PULSE 82
[2019-11-01] MEDS ORDERED: AMOX TR/POT CLAV 875MG/125MG TABLETS (FP) PO ONE (15:15)
[2019-11-01] MEDS ORDERED: AMOX TR/POT CLAV 875MG/125MG TABLETS (FP) ONE (15:27)
--- NOTE | 2019-11-01 15:29 | EKG ---
Test Reason : Blood Pressure : / mmHG Vent. Rate : 084 BPM Atrial Rate : 110 BPM P-R Int : 000 ms QRS Dur : 134 ms QT Int : 388 ms P-R-T Axes : 000 031 142 degrees QTc Int : 458 ms ATRIAL FIBRILLATION LEFT BUNDLE BRANCH BLOCK ABNORMAL ECG WHEN COMPARED WITH ECG OF 13-JUL-2017 21:22, ATRIAL FIBRILLATION HAS REPLACED SINUS RHYTHM Confirmed by RAHUL NORMAN MD ([id number]) on 11/01/2019 3:29:04 PM Referred By: KYRIE AVILES Confirmed By:RAHUL NORMAN MD
== END 2019-11-01 15:38 | disposition left against medical advice (07) ==
LOC: FER 12:07
PROC: 3E0337Z Introduction of Electrolytic and Water Balance Substance into Peripheral Vein, Percutaneous Approach (ICD-10-PCS; principal; 2019-11-01)
DX: K57.80 Diverticulitis of intestine, part unspecified, with perforation and abscess without bleeding (principal); I44.7 Left bundle-branch block, unspecified; I48.91 Unspecified atrial fibrillation
CPT/HCPCS: 36415; 71045-TC-FY; 74177-TC; 80053; 81003; 82550; 82553; 83735; 84443; 84484; 85025; 87086; 93005; 99285-25; Q9967